=== PATIENT | female | born 2000 | race Caucasian/White ===

== ENCOUNTER 2021-07-27 03:37 | Emergency (ER) | payer MEDICAID ==
[~2021-07-27] VITALS: Ht 160 cm; Wt 57.6 kg
[2021-07-27 04:10] LABS: Basophils # (auto) 0.1 10 ^3/uL (0-0.2); Eosinophils # (auto) 0.2 10 ^3/uL (0-0.8); Hemoglobin 12.3 g/dL (12.2-16.2); Nucleated Red Blood Cells % 0.1 %
[2021-07-27 04:11] LABS: Basophils % (auto) 0.6 % (0.0-2.0); Eosinophils % (auto) 2.1 % (0.0-7.0); Hematocrit 38.6 % (36.0-46.0); Lymphocytes # (auto) 2.1 10 ^3/uL (0.4-5.4); Lymphocytes % (auto) 18.4 % (10.0-50.0); Mean Corpuscular Hemoglobin 21.3 pg (28.0-32.0); Mean Corpuscular Hgb Conc. 31.9 g/dL (32.0-36.0); Mean Corpuscular Volume 66.8 fL (80.0-100.0); Monocytes # (auto) 0.9 10 ^3/uL (0-1.3); Monocytes % (auto) 7.9 % (0.0-12.0); Neutrophils # (auto) 8.1 10 ^3/uL (1.6-8.6); Red Blood Cells 5.77 10^6/uL (4.0-5.20); White Blood Cell 11.5 10^3/uL (4.4-10.8)
[2021-07-27 04:24] LABS: Albumin 4.2 g/dL (3.4-5.0); BUN/Creatinine Ratio 15.5; Calcium 9.1 mg/dL (8.5-10.1); Potassium 4.2 mmol/L (3.5-5.1)
[2021-07-27 04:27] LABS: Bilirubin, Total 0.3 mg/dL (0.2-1.0); Total Protein 7.9 g/dL (6.4-8.2)
[2021-07-27 04:46] LABS: Urine Bacteria NONE SEEN /hpf (None Seen); Urine Blood 3+ /uL (Negative); Urine Specific Gravity 1.017 (1.001-1.035); Urine WBC 69 /hpf (0 - 5)
[2021-07-27 05:30] VITALS: BP 118/82
== END 2021-07-27 05:33 | disposition home or self-care (01) ==
LOC: ER 03:37
DX: N39.0 Urinary tract infection, site not specified (principal); R31.9 Hematuria, unspecified; Z32.02 Encounter for pregnancy test, result negative
CPT/HCPCS: 36415; 80053; 81001; 81025; 85025; 86850; 86900; 86901

== ENCOUNTER 2021-08-11 22:18 | Emergency (ER) | payer MEDICAID ==
[~2021-08-11] VITALS: Ht 160 cm; Wt 57.6 kg
[2021-08-11 22:18] VITALS: BP 114/76
[2021-08-11 23:42] LABS: Urine Bacteria NONE SEEN /hpf (None Seen); Urine Blood 3+ /uL (Negative); Urine WBC 1332 /hpf (0 - 5)
[2021-08-11 23:55] LABS: Urine Specific Gravity > 1.035 (1.001-1.035)
[2021-08-12] MEDS ORDERED: NITROFURANTOIN 100 mg CAP PO ONE (01:15)
== END 2021-08-12 03:42 | disposition left against medical advice (07) ==
LOC: ER 22:18
DX: R31.9 Hematuria, unspecified (principal); R10.2 Pelvic and perineal pain; Z53.21 Procedure and treatment not carried out due to patient leaving prior to being seen by health care provider
CPT/HCPCS: 81001

== ENCOUNTER 2021-11-10 19:21 | Emergency (ER) | payer MEDICAID ==
[~2021-11-10] VITALS: Ht 160 cm; Wt 57.2 kg
[2021-11-10 21:05] VITALS: BP 109/77
[2021-11-10 21:18] LABS: Urine Bacteria NONE SEEN /hpf (None Seen); Urine Blood Negative /uL (Negative); Urine Specific Gravity 1.018 (1.001-1.035); Urine WBC 2 /hpf (0 - 5)
[2021-11-10 23:00] LABS: Basophils # (auto) 0 10 ^3/uL (0-0.2); Eosinophils # (auto) 0.2 10 ^3/uL (0-0.8); Hemoglobin 11.4 g/dL (12.2-16.2); Monocytes # (auto) 0.5 10 ^3/uL (0-1.3)
[2021-11-10 23:02] LABS: Basophils % (auto) 0.4 % (0.0-2.0); Hematocrit 37.2 % (36.0-46.0); Lymphocytes % (auto) 21.3 % (10.0-50.0); Mean Corpuscular Hemoglobin 20.5 pg (28.0-32.0); Mean Corpuscular Hgb Conc. 30.7 g/dL (32.0-36.0); Mean Corpuscular Volume 66.6 fL (80.0-100.0); Monocytes % (auto) 5.7 % (0.0-12.0); Neutrophils # (auto) 6.6 10 ^3/uL (1.6-8.6); Neutrophils % (auto) 70.6 % (37.0-80.0); Nucleated Red Blood Cells % 0.1 %; Red Blood Cells 5.58 10^6/uL (4.0-5.20); Red Cell Distribution Width 15.1 % (11.8-14.3); White Blood Cell 9.3 10^3/uL (4.4-10.8)
[2021-11-10 23:09] LABS: Albumin 4.1 g/dL (3.4-5.0); BUN/Creatinine Ratio 12.5; Calcium 8.5 mg/dL (8.5-10.1); Potassium 3.7 mmol/L (3.5-5.1)
[2021-11-10 23:12] LABS: Bilirubin, Total 0.4 mg/dL (0.2-1.0); Total Protein 7.6 g/dL (6.4-8.2)
== END 2021-11-11 03:01 | disposition home or self-care (01) ==
LOC: ER 19:21
DX: O26.891 Other specified pregnancy related conditions, first trimester (principal); R10.11 Right upper quadrant pain; R10.2 Pelvic and perineal pain; R11.0 Nausea; Z3A.01 Less than 8 weeks gestation of pregnancy
CPT/HCPCS: 36415; 76801; 76817; 80053; 81001; 84702; 85025

== ENCOUNTER 2021-12-27 13:20 | Emergency (ER) | payer MEDICAID ==
[~2021-12-27] VITALS: Ht 160 cm; Wt 62.0 kg
[2021-12-27] MEDS ORDERED: SODIUM CHLORIDE 0.9% 1,000 ML IV ONE (13:45)
[2021-12-27 14:09] LABS: Basophils # (auto) 0.1 10 ^3/uL (0-0.2); Eosinophils # (auto) 0.1 10 ^3/uL (0-0.8); Hemoglobin 11.4 g/dL (12.2-16.2); Mean Corpuscular Volume 65.3 fL (80.0-100.0); Monocytes # (auto) 0.7 10 ^3/uL (0-1.3)
[2021-12-27 14:12] LABS: Basophils % (auto) 0.6 % (0.0-2.0); Eosinophils % (auto) 0.7 % (0.0-7.0); Hematocrit 36.1 % (36.0-46.0); Lymphocytes # (auto) 2.4 10 ^3/uL (0.4-5.4); Lymphocytes % (auto) 21.5 % (10.0-50.0); Mean Corpuscular Hemoglobin 20.6 pg (28.0-32.0); Mean Corpuscular Hgb Conc. 31.6 g/dL (32.0-36.0); Monocytes % (auto) 6.5 % (0.0-12.0); Neutrophils # (auto) 7.8 10 ^3/uL (1.6-8.6); Neutrophils % (auto) 70.7 % (37.0-80.0); Nucleated Red Blood Cells % 0.1 %; Red Blood Cells 5.53 10^6/uL (4.0-5.20); Red Cell Distribution Width 15.2 % (11.8-14.3)
[2021-12-27 14:32] LABS: BUN/Creatinine Ratio 22.8; Calcium 8.8 mg/dL (8.5-10.1); Potassium 3.7 mmol/L (3.5-5.1)
[2021-12-27 14:35] LABS: Bilirubin, Total 0.2 mg/dL (0.2-1.0); Total Protein 8.2 g/dL (6.4-8.2)
[2021-12-27] MEDS ORDERED: CEPH-322 PO (17:20)
[2021-12-27 17:42] LABS: Urine Bacteria NONE SEEN /hpf (None Seen); Urine Blood 3+ /uL (Negative); Urine Specific Gravity 1.017 (1.001-1.035); Urine WBC 4 /hpf (0 - 5)
[2021-12-27 18:03] VITALS: BP 103/67
== END 2021-12-27 18:04 | disposition home or self-care (01) ==
LOC: EDBD 13:20 → ER 13:20
DX: O20.8 Other hemorrhage in early pregnancy (principal); O23.41 Unspecified infection of urinary tract in pregnancy, first trimester; N39.0 Urinary tract infection, site not specified; Z3A.13 13 weeks gestation of pregnancy
CPT/HCPCS: 36415; 76801; 80053; 81001; 84702; 85025; 96360; 99284; J7030

== ENCOUNTER → 2022-01-29 | Outpatient (CLI) | payer MEDICAID ==
[~2022-01-29] MED LIST: CEPH-322 PO
[2022-01-29 13:28] LABS: Neutrophils % (auto) 75.9 % (37.0-80.0); White Blood Cell 7.4 10^3/uL (4.4-10.8)
[2022-01-29 13:29] LABS: Basophils % (auto) 0.4 % (0.0-2.0); Eosinophils % (auto) 0.8 % (0.0-7.0); Lymphocytes % (auto) 16.4 % (10.0-50.0); Monocytes % (auto) 6.5 % (0.0-12.0)
[2022-01-29 13:30] LABS: Eosinophils # (auto) 0.1 10 ^3/uL (0-0.8); Lymphocytes # (auto) 1.2 10 ^3/uL (0.4-5.4); Monocytes # (auto) 0.5 10 ^3/uL (0-1.3); Neutrophils # (auto) 5.6 10 ^3/uL (1.6-8.6)
[2022-01-29 13:31] LABS: Basophils # (auto) 0 10 ^3/uL (0-0.2)
[2022-01-29 13:32] LABS: Hematocrit 34.4 % (36.0-46.0); Hemoglobin 11.1 g/dL (12.2-16.2); Mean Corpuscular Hemoglobin 21.1 pg (28.0-32.0); Mean Corpuscular Volume 65.3 fL (80.0-100.0); Red Blood Cells 5.27 10^6/uL (4.0-5.20)
[2022-01-29 13:33] LABS: Mean Corpuscular Hgb Conc. 32.3 g/dL (32.0-36.0); Red Cell Distribution Width 14.8 % (11.8-14.3)
[2022-01-29 13:35] LABS: Amphetamine Screen, Urine NEGATIVE (NEGATIVE); Barbiturate Scree,Urine NEGATIVE (NEGATIVE); Benzodiazephine Screen, Urine NEGATIVE (NEGATIVE); Cannabinoid Screen, Urine NEGATIVE (NEGATIVE); Cocaine Screen, Urine NEGATIVE (NEGATIVE); Opiate Scree,Urine NEGATIVE (NEGATIVE); Phencyclidine Screen, Urine NEGATIVE (NEGATIVE)
[2022-01-29 13:59] LABS: Urine Bacteria NONE SEEN /hpf (None Seen); Urine Blood Negative /uL (Negative); Urine Mucus FEW (None Seen); Urine Specific Gravity 1.028 (1.001-1.035); Urine WBC 4 /hpf (0 - 5)
[2022-01-30 07:06] LABS: RPR Non Reactive (Non Reactive)
== END | disposition home or self-care (01) ==
LOC: LAB 12:18
PROVIDERS: ATTEND Obstetrics & Gynecology
DX: Z34.00 Encounter for supervision of normal first pregnancy, unspecified trimester (principal); Z31.430 Encounter of female for testing for genetic disease carrier status for procreative management; Z36.0 Encounter for antenatal screening for chromosomal anomalies; Z3A.00 Weeks of gestation of pregnancy not specified
CPT/HCPCS: 36415; 80307; 81001; 83036; 84112; 84702; 85025; 86592; 86703; 86762; 86850; 86900; 86901; 87340

== ENCOUNTER 2022-02-10 21:44 | Emergency (ER) | payer MEDICAID ==
[~2022-02-10] VITALS: Ht 160 cm; Wt 56.0 kg
[2022-02-10 23:18] LABS: Basophils # (auto) 0 10 ^3/uL (0-0.2); Mean Corpuscular Volume 65.9 fL (80.0-100.0); White Blood Cell 10.8 10^3/uL (4.4-10.8)
[2022-02-10 23:19] LABS: Basophils % (auto) 0.5 % (0.0-2.0); Eosinophils # (auto) 0 10 ^3/uL (0-0.8); Eosinophils % (auto) 0.4 % (0.0-7.0); Hematocrit 34.2 % (36.0-46.0); Lymphocytes # (auto) 1.8 10 ^3/uL (0.4-5.4); Lymphocytes % (auto) 16.3 % (10.0-50.0); Mean Corpuscular Hemoglobin 21.1 pg (28.0-32.0); Monocytes # (auto) 0.7 10 ^3/uL (0-1.3); Monocytes % (auto) 6.3 % (0.0-12.0); Neutrophils # (auto) 8.3 10 ^3/uL (1.6-8.6); Neutrophils % (auto) 76.5 % (37.0-80.0); Red Blood Cells 5.19 10^6/uL (4.0-5.20); Red Cell Distribution Width 14.7 % (11.8-14.3)
[2022-02-10 23:33] LABS: Potassium 3.9 mmol/L (3.5-5.1)
[2022-02-10 23:38] LABS: Albumin 3.5 g/dL (3.4-5.0); BUN/Creatinine Ratio 10.3
[2022-02-10 23:40] LABS: Bilirubin, Total 0.4 mg/dL (0.2-1.0); Total Protein 7.6 g/dL (6.4-8.2)
[2022-02-11] MEDS ORDERED: ONDANSETRON ODT 4 MG TAB PO ONE (03:30)
[2022-02-11] MEDS ORDERED: diphenhdrAMINE HCL 50 MG/1 ML VL IM ONE (03:30)
[2022-02-11] MEDS ORDERED: METOCLOPRAMIDE HCL 5MG/ml INJ 2ml VIAL IM ONE (03:30)
[2022-02-11] MEDS ORDERED: DOXY10TA PO (05:14)
[2022-02-11 05:30] VITALS: BP 118/76
== END 2022-02-11 05:30 | disposition home or self-care (01) ==
LOC: ER 21:45
DX: O21.0 Mild hyperemesis gravidarum (principal); R10.2 Pelvic and perineal pain; Z3A.19 19 weeks gestation of pregnancy
CPT/HCPCS: 36415; 76805; 80053; 84702; 85025; 96372; 99284; J1200; J2765; Q0162

== ENCOUNTER → 2022-04-10 | Outpatient (CLI) | payer MEDICAID ==
[~2022-04-10] MED LIST changes: +DOXY10TA PO
[2022-04-10 09:56] LABS: Basophils # (auto) 0 10 ^3/uL (0-0.2); Eosinophils # (auto) 0.1 10 ^3/uL (0-0.8); Lymphocytes # (auto) 1.5 10 ^3/uL (0.4-5.4)
[2022-04-10 09:57] LABS: Basophils % (auto) 0.4 % (0.0-2.0); Eosinophils % (auto) 1.2 % (0.0-7.0); Hemoglobin 10.2 g/dL (12.2-16.2); Lymphocytes % (auto) 13.9 % (10.0-50.0); Mean Corpuscular Volume 66.7 fL (80.0-100.0); Monocytes # (auto) 0.8 10 ^3/uL (0-1.3); Monocytes % (auto) 7.4 % (0.0-12.0); Neutrophils # (auto) 8.4 10 ^3/uL (1.6-8.6); Neutrophils % (auto) 77.1 % (37.0-80.0); Nucleated Red Blood Cells % 0.1 %; Red Blood Cells 4.65 10^6/uL (4.0-5.20); White Blood Cell 10.9 10^3/uL (4.4-10.8)
== END | disposition home or self-care (01) ==
LOC: LAB 09:39
PROVIDERS: ATTEND Obstetrics & Gynecology
DX: Z34.80 Encounter for supervision of other normal pregnancy, unspecified trimester (principal); Z3A.00 Weeks of gestation of pregnancy not specified
CPT/HCPCS: 36415; 82951; 83036; 85025

== ENCOUNTER 2022-05-08 13:00 | Observation (INO) | payer MEDICAID | END 2022-05-08 17:35 | disposition home or self-care (01) | LOC: LDRP 13:00 → UNDOADMOB 13:00 → LDRP 15:16 | PROVIDERS: ADMIT Obstetrics & Gynecology; ATTEND Obstetrics & Gynecology | DX: O60.03 Preterm labor without delivery, third trimester (principal); O26.893 Other specified pregnancy related conditions, third trimester; N89.8 Other specified noninflammatory disorders of vagina; H53.8 Other visual disturbances; O42.913 Preterm premature rupture of membranes, unspecified as to length of time between rupture and onset of labor, third trimester; Z3A.31 31 weeks gestation of pregnancy | CPT/HCPCS: 59025; 76815; 81002; 84112; 94760; G0378; Q0114 ==

== ENCOUNTER 2022-05-20 13:00 | Observation (INO) | payer MEDICAID ==
[~2022-05-20] VITALS: Ht 160 cm; Wt 56.2 kg
[2022-05-20] MEDS ORDERED: LACTATED RINGER'S 1,000 ML IV ONE (13:45)
[2022-05-20] MEDS ORDERED: HYDROcodone-ACET 10/325MG TAB PO ONE (13:45)
[2022-05-20] MEDS ORDERED: ceFAZolin 1GM/50ML 50 ML IV ONE (13:45)
[2022-05-20] MEDS: ONDANSETRON HCL 4 MG/2 ML VIAL IV PRN ×2 (14:27→17:58)
[2022-05-20] MEDS ORDERED: BUTORPHANOL TARTRATE 2 MG/1 ML VIAL IV ONE (14:30)
[2022-05-20 15:28] VITALS: BP 95/57
[2022-05-20 15:31] LABS: Urine Bacteria FEW /hpf (None Seen); Urine Blood TRACE /uL (Negative); Urine Specific Gravity 1.015 (1.001-1.035); Urine WBC 6 /hpf (0 - 5)
[2022-05-20 15:39] LABS: Basophils # (auto) 0 10 ^3/uL (0-0.2); Basophils % (auto) 0.3 % (0.0-2.0); Eosinophils # (auto) 0 10 ^3/uL (0-0.8); Eosinophils % (auto) 0.5 % (0.0-7.0); Hematocrit 26.5 % (36.0-46.0); Hemoglobin 8.7 g/dL (12.2-16.2); Lymphocytes # (auto) 0.9 10 ^3/uL (0.4-5.4); Lymphocytes % (auto) 10.6 % (10.0-50.0); Mean Corpuscular Hemoglobin 21.6 pg (28.0-32.0); Mean Corpuscular Hgb Conc. 32.9 g/dL (32.0-36.0); Mean Corpuscular Volume 65.7 fL (80.0-100.0); Monocytes # (auto) 0.5 10 ^3/uL (0-1.3); Monocytes % (auto) 5.6 % (0.0-12.0); Neutrophils # (auto) 6.9 10 ^3/uL (1.6-8.6); Nucleated Red Blood Cells % 0.1 %; Red Blood Cells 4.02 10^6/uL (4.0-5.20); Red Cell Distribution Width 14.3 % (11.8-14.3); White Blood Cell 8.3 10^3/uL (4.4-10.8)
[2022-05-20] MEDS: TERBUTALINE SULFATE 1 MG/ML 1ML VIAL SC SCH ×2 (16:26→17:45)
[2022-05-20] MEDS ORDERED: LACTATED RINGER'S 1,000 ML IV SCH (18:30)
[2022-05-20] MEDS ORDERED: NITR-87 PO (19:40)
== END 2022-05-20 19:58 | disposition home or self-care (01) ==
LOC: UNDOADMOB 13:00 → LDRP 13:00 → UNDODISOB 19:58
PROVIDERS: ADMIT Obstetrics & Gynecology; ATTEND Obstetrics & Gynecology
DX: O26.893 Other specified pregnancy related conditions, third trimester (principal); R10.30 Lower abdominal pain, unspecified; R10.13 Epigastric pain; R35.0 Frequency of micturition; O62.9 Abnormality of forces of labor, unspecified; Z3A.33 33 weeks gestation of pregnancy
CPT/HCPCS: 36415; 59025; 81001; 81002; 85025; 94760; 96361; 96365; 96372; 96375; 96376; G0378; J0595; J0690; J2405; J3105; 96360; 96374

== ENCOUNTER → 2022-05-29 | Outpatient (CLI) | payer MEDICAID ==
[~2022-05-29] MED LIST changes: +NITR-87 PO
[2022-05-29 11:44] LABS: Nucleated Red Blood Cells % 0.2 %
[2022-05-29 11:46] LABS: Basophils # (auto) 0 10 ^3/uL (0-0.2); Basophils % (auto) 0.4 % (0.0-2.0); Eosinophils # (auto) 0.2 10 ^3/uL (0-0.8); Eosinophils % (auto) 1.8 % (0.0-7.0); Hematocrit 30.1 % (36.0-46.0); Hemoglobin 9.8 g/dL (12.2-16.2); Lymphocytes # (auto) 1.5 10 ^3/uL (0.4-5.4); Lymphocytes % (auto) 17.2 % (10.0-50.0); Mean Corpuscular Hemoglobin 21.4 pg (28.0-32.0); Mean Corpuscular Hgb Conc. 32.5 g/dL (32.0-36.0); Mean Corpuscular Volume 65.7 fL (80.0-100.0); Monocytes # (auto) 0.7 10 ^3/uL (0-1.3); Monocytes % (auto) 7.6 % (0.0-12.0); Neutrophils # (auto) 6.4 10 ^3/uL (1.6-8.6); Red Blood Cells 4.58 10^6/uL (4.0-5.20); Red Cell Distribution Width 14.2 % (11.8-14.3); White Blood Cell 8.8 10^3/uL (4.4-10.8)
[2022-05-30 08:06] LABS: RPR Non Reactive (Non Reactive)
== END | disposition home or self-care (01) ==
LOC: LAB 11:23
PROVIDERS: ATTEND Obstetrics & Gynecology
DX: Z34.80 Encounter for supervision of other normal pregnancy, unspecified trimester (principal); Z3A.00 Weeks of gestation of pregnancy not specified
CPT/HCPCS: 36415; 84112; 85025; 86592

== ENCOUNTER 2022-07-05 11:18 | Inpatient (IN) | payer MEDICAID ==
[~2022-07-05] VITALS: Ht 33 cm; Wt 0.5 kg
[2022-07-05] MEDS ORDERED: PROMETHAZINE HCL 25 MG/ML 1ML IV PRN (12:00)
[2022-07-05] MEDS ORDERED: BUTORPHANOL TARTRATE 2 MG/1 ML VIAL IV PRN ×2 (12:00)
[2022-07-05] MEDS ORDERED: LIDOCAINE 2%HCL (LOCAL ANESTH.) INJ 20ML MDV IJ PRN (12:00)
[2022-07-05] MEDS ORDERED: LACT. RINGERS/OXYTOCIN 20UNITS 500 ML IV ONE ×2 (12:00→12:30)
[2022-07-05 12:26] LABS: Basophils # (auto) 0 10 ^3/uL (0-0.2); Basophils % (auto) 0.5 % (0.0-2.0); Eosinophils # (auto) 0.1 10 ^3/uL (0-0.8); Eosinophils % (auto) 0.6 % (0.0-7.0); Hematocrit 31.2 % (36.0-46.0); Hemoglobin 9.9 g/dL (12.2-16.2); Lymphocytes % (auto) 21.3 % (10.0-50.0); Mean Corpuscular Hemoglobin 20.8 pg (28.0-32.0); Mean Corpuscular Hgb Conc. 31.8 g/dL (32.0-36.0); Mean Corpuscular Volume 65.6 fL (80.0-100.0); Monocytes # (auto) 0.6 10 ^3/uL (0-1.3); Monocytes % (auto) 5.9 % (0.0-12.0); Neutrophils # (auto) 6.8 10 ^3/uL (1.6-8.6); Neutrophils % (auto) 71.7 % (37.0-80.0); Red Blood Cells 4.76 10^6/uL (4.0-5.20); Red Cell Distribution Width 16.6 % (11.8-14.3); White Blood Cell 9.4 10^3/uL (4.4-10.8)
[2022-07-05 12:43] LABS: INR 0.91 (0.9-1.15); Partial Thromboplastin Time 25.9 sec (24.6-33.4)
[2022-07-05 12:44] LABS: Albumin 2.9 g/dL (3.4-5.0); Calcium 8.6 mg/dL (8.5-10.1); Potassium 3.7 mmol/L (3.5-5.1)
[2022-07-05 12:49] LABS: Bilirubin, Total 0.4 mg/dL (0.2-1.0); Total Protein 7.2 g/dL (6.4-8.2)
[2022-07-05] MEDS: LACTATED RINGER'S 1,000 ML IV SCH ×2 (13:27→19:03)
[2022-07-05 13:39] LABS: Urine Bacteria FEW /hpf (None Seen); Urine Blood 1+ /uL (Negative); Urine Mucus FEW (None Seen); Urine Specific Gravity 1.018 (1.001-1.035); Urine WBC 2 /hpf (0 - 5)
[2022-07-05 13:59] LABS: Amphetamine Screen, Urine NEGATIVE (NEGATIVE); Barbiturate Scree,Urine NEGATIVE (NEGATIVE); Benzodiazephine Screen, Urine NEGATIVE (NEGATIVE); Cannabinoid Screen, Urine NEGATIVE (NEGATIVE); Cocaine Screen, Urine NEGATIVE (NEGATIVE); Opiate Scree,Urine NEGATIVE (NEGATIVE); Phencyclidine Screen, Urine NEGATIVE (NEGATIVE)
[2022-07-05] MEDS ORDERED: fentaNYL CITRATE 100 MCG/2 ML VL IV ONE (14:00)
[2022-07-05] MEDS ORDERED: ePHEDrine SULFATE 50 MG/ML AMP IV ONE (14:00)
[2022-07-05] MEDS ORDERED: NALOXONE HCL 0.4 MG/ML VIAL IV ONE (14:00)
[2022-07-05] MEDS ORDERED: LACTATED RINGER'S 1,000 ML IV ONE (14:00)
[2022-07-05] MEDS ORDERED: ROPIVACAINE HCL 200 ML EPI SCH (14:00)
[2022-07-05] MEDS ORDERED: LIDOCAINE W/ EPINEPHRINE 1.5 % INJ 5ML AMP IJ ONE (14:15)
[2022-07-05] MEDS ORDERED: Lidocaine W-Epinephrine 1.5%-1:200,000 INJ 10ml Vial ONE (14:32)
[2022-07-05] MEDS ORDERED: LACT. RINGERS/OXYTOCIN 20UNITS 1,000 ML IV SCH (15:30)
[2022-07-05] MEDS ORDERED: TERBUTALINE SULFATE 1 MG/ML 1ML VIAL SC PRN (15:30)
[2022-07-05] MEDS: WITCH HAZEL-GLYCERIN PAD TOP PRN (17:09)
[2022-07-05] MEDS: DERMOPLAST 60ML BOTTLE TOP PRN (17:09)
[2022-07-05] MEDS: PHISODERM TOP SOLN 240ML BTL TOP PRN (17:09)
[2022-07-05] MEDS: ONDANSETRON HCL 4 MG/2 ML VIAL IV PRN (18:55)
[2022-07-05] MEDS ORDERED: METHYLERGONOVINE MALEATE 0.2 MG/ML AMP IM PRN (21:15)
[2022-07-06] VITALS (12 sets, daily range): BP systolic 112–169; BP diastolic 71–102
[2022-07-06] MEDS ORDERED: IBUPROFEN 800 MG TAB PO SCH
[2022-07-06] MEDS ORDERED: ACETAMINOPHEN 325 MG TAB PO PRN
[2022-07-06] MEDS ORDERED: miSOPROStol 100 mcg TAB PR PRN (00:30)
[2022-07-06] MEDS: ONDANSETRON HCL 4 MG/2 ML VIAL IV PRN (00:51)
[2022-07-06] MEDS: HYDROcodone-ACET 10/325MG TAB PO PRN ×4 (04:51→21:44)
[2022-07-06 06:06] LABS: RPR Non Reactive (Non Reactive)
[2022-07-06] MEDS: IBUPROFEN 800 MG TAB PO PRN ×3 (09:47→23:44)
[2022-07-06] MEDS ORDERED: miSOPROStol 100 mcg TAB PO ONE (10:39)
[2022-07-06] MEDS ORDERED: TETANUS-DIPTH-ACEL PERTUSSIS 0.5ML SYR Tdap IM ONE (16:00)
[2022-07-06] MEDS: PHISODERM TOP SOLN 240ML BTL TOP PRN (16:43)
[2022-07-06] MEDS: WITCH HAZEL-GLYCERIN PAD TOP PRN (16:43)
[2022-07-06] MEDS: DERMOPLAST 60ML BOTTLE TOP PRN (16:43)
[2022-07-06] MEDS ORDERED: DOCUSATE SOD 100 MG CAP PO SCH (22:00)
[2022-07-07 03:00] VITALS: BP 123/69
[2022-07-07] MEDS: WITCH HAZEL-GLYCERIN PAD TOP PRN ×2 (03:32→07:30)
[2022-07-07] MEDS: HYDROcodone-ACET 10/325MG TAB PO PRN (05:17)
[2022-07-07 07:00] VITALS: BP 119/68
[2022-07-07] MEDS: IBUPROFEN 800 MG TAB PO PRN (07:30)
[2022-07-07] MEDS: DERMOPLAST 60ML BOTTLE TOP PRN (07:30)
== END 2022-07-07 10:20 | disposition home or self-care (01) | DRG 560 ==
LOC: LDRP 11:18 → OBSVTOIN 11:50 → LDRP 07-06 02:33
PROVIDERS: ADMIT Obstetrics & Gynecology; ATTEND Obstetrics & Gynecology
PROC: 10D07Z6 Extraction of Products of Conception, Vacuum, Via Natural or Artificial Opening (ICD-10-PCS; principal; 2022-07-05)
PROC: 0KQM0ZZ Repair Perineum Muscle, Open Approach (ICD-10-PCS; 2022-07-05)
PROC: 10907ZC Drainage of Amniotic Fluid, Therapeutic from Products of Conception, Via Natural or Artificial Opening (ICD-10-PCS; 2022-07-05)
PROC: 0W8NXZZ Division of Female Perineum, External Approach (ICD-10-PCS; 2022-07-05)
PROC: 3E0R3BZ Introduction of Anesthetic Agent into Spinal Canal, Percutaneous Approach (ICD-10-PCS; 2022-07-05)
PROC: 00HU33Z Insertion of Infusion Device into Spinal Canal, Percutaneous Approach (ICD-10-PCS; 2022-07-05)
DX: O69.81X0 Labor and delivery complicated by cord around neck, without compression, not applicable or unspecified (principal); Z37.0 Single live birth; O70.1 Second degree perineal laceration during delivery; Z20.822 Contact with and (suspected) exposure to COVID-19; Z3A.39 39 weeks gestation of pregnancy
CPT/HCPCS: 36415; 59025; 59409; 62282; 80053; 80307; 81001; 81002; 85025; 85610; 85730; 86592; 86850; 86900; 86901; 87426; 90471; 90715; 94760; 96360; 96361; 96365; 96366; 96375; G0378; J2405; J2590

== ENCOUNTER 2022-12-15 17:13 | Emergency (ER) | payer MEDICAID ==
[~2022-12-15] VITALS: Ht 157.5 cm; Wt 56.0 kg
[~2022-12-15 17:13] MED LIST changes: -CEPH-322 PO; +CEPH250C PO
[2022-12-15] MEDS ORDERED: ALBUTEROL SULF 2.5 MG/0.5ML(0.5%) NEB SOLN NEB ONE (19:00)
[2022-12-15] MEDS ORDERED: IPRATROPIUM BROM 0.5 MG/2.5ML INH SOL NEB ONE (19:00)
[2022-12-15] MEDS ORDERED: DexAMETHasone SOD PHOS 10MG/1ML VIAL INJ IM ONE (19:00)
[2022-12-15] MEDS ORDERED: cefTRIAXone SOD 1,000 MG VL IM ONE (20:15)
[2022-12-15] MEDS ORDERED: PRED20TA2 PO (20:17)
[2022-12-15] MEDS ORDERED: ALBUAER3 IN (20:17)
[2022-12-15] MEDS ORDERED: BENZ200C64 PO (20:17)
[2022-12-15] MEDS ORDERED: GENT0.3S10 EACHEYE (20:17)
[2022-12-15] MEDS ORDERED: AUG875T PO (20:17)
[2022-12-15 20:43] VITALS: BP 117/80; PULSE 96; RESP 16; TEMP 98.6; O2SAT 95
== END 2022-12-15 20:52 | disposition home or self-care (01) ==
LOC: ER 17:13
DX: J18.9 Pneumonia, unspecified organism (principal); H10.9 Unspecified conjunctivitis
CPT/HCPCS: 71045; 94640; 96372; 99284; J0696; J1100; J7644

== ENCOUNTER → 2023-01-16 | Outpatient (CLI) | payer MEDICAID ==
[~2023-01-16] MED LIST changes: +ALBUAER3 IN; +AUG875T PO; +BENZ200C64 PO; +GENT0.3S10 EACHEYE; +PRED20TA2 PO
[2023-01-16 09:23] LABS: Eosinophils # (auto) 0.2 10 ^3/uL (0-0.8); Mean Corpuscular Hemoglobin 20.4 pg (28.0-32.0); Mean Corpuscular Volume 65.2 fL (80.0-100.0); Monocytes # (auto) 0.5 10 ^3/uL (0-1.3); Monocytes % (auto) 7.1 % (0.0-12.0); Neutrophils # (auto) 4.2 10 ^3/uL (1.6-8.6); Nucleated Red Blood Cells % 0.1 %; White Blood Cell 6.6 10^3/uL (4.4-10.8)
[2023-01-16 09:25] LABS: Basophils # (auto) 0.1 10 ^3/uL (0-0.2); Basophils % (auto) 0.8 % (0.0-2.0); Eosinophils % (auto) 2.9 % (0.0-7.0); Hemoglobin 11.2 g/dL (12.2-16.2); Lymphocytes # (auto) 1.6 10 ^3/uL (0.4-5.4); Lymphocytes % (auto) 24.5 % (10.0-50.0); Mean Corpuscular Hgb Conc. 31.3 g/dL (32.0-36.0); Neutrophils % (auto) 64.7 % (37.0-80.0); Red Blood Cells 5.52 10^6/uL (4.0-5.20); Red Cell Distribution Width 17.1 % (11.8-14.3)
[2023-01-16 10:20] LABS: % Iron Saturation 21.5 % (15-50)
[2023-01-16 10:22] LABS: Alanine Aminotransferase 12 U/L (7-40); Albumin 4.4 g/dL (3.2-4.8); Alkaline Phosphatase 98 U/L (46-116); Anion Gap 7 (5-15); Aspartate Aminotransferase < 8 U/L (13-40); BUN/Creatinine Ratio 18.5 (10.0-20.0); Blood Urea Nitrogen 12 mg/dL (9-23); Calcium 9.1 mg/dL (8.5-10.1); Carbon Dioxide 27 mmol/L (20-30); Chloride 107 mmol/L (98-107); Glucose 83 mg/dL (74-106); Sodium 141 mmol/L (136-145)
[2023-01-16 10:23] LABS: Bilirubin, Total 0.5 mg/dL (0.2-1.0); Total Protein 7.1 g/dL (5.7-8.2)
[2023-01-16 10:55] LABS: Folate (Folic Acid) 11.02 ng/mL (>5.38)
[2023-01-16 12:07] LABS: Hypochromia Moderate; Platelet Estimate Adequate
== END | disposition home or self-care (01) ==
LOC: LAB 09:05
PROVIDERS: ATTEND Student in an Organized Health Care Education/Training Program
DX: E55.9 Vitamin D deficiency, unspecified (principal); D64.9 Anemia, unspecified
CPT/HCPCS: 36415; 80053; 82306; 82607; 82728; 82746; 83540; 83550; 85025

== ENCOUNTER → 2023-05-23 | Outpatient (CLI) | payer MEDICAID ==
[2023-05-23 12:07] LABS: Eosinophils # (auto) 0.2 10 ^3/uL (0-0.8); Eosinophils % (auto) 2.3 % (0.0-7.0); Monocytes # (auto) 0.5 10 ^3/uL (0-1.3)
[2023-05-23 12:09] LABS: Basophils # (auto) 0 10 ^3/uL (0-0.2); Basophils % (auto) 0.4 % (0.0-2.0); Hematocrit 35.3 % (36.0-46.0); Hemoglobin 11.2 g/dL (12.2-16.2); Lymphocytes # (auto) 1.5 10 ^3/uL (0.4-5.4); Lymphocytes % (auto) 20.4 % (10.0-50.0); Mean Corpuscular Hemoglobin 20.8 pg (28.0-32.0); Mean Corpuscular Hgb Conc. 31.8 g/dL (32.0-36.0); Mean Corpuscular Volume 65.4 fL (80.0-100.0); Monocytes % (auto) 7.1 % (0.0-12.0); Neutrophils # (auto) 5.2 10 ^3/uL (1.6-8.6); Neutrophils % (auto) 69.8 % (37.0-80.0); Nucleated Red Blood Cells % 0.1 %; Red Blood Cells 5.39 10^6/uL (4.0-5.20); Red Cell Distribution Width 16.2 % (11.8-14.3); White Blood Cell 7.5 10^3/uL (4.4-10.8)
[2023-05-23 12:28] LABS: Urine Bacteria NONE SEEN /hpf (None Seen); Urine Blood Negative /uL (Negative); Urine Clarity Clear (Clear); Urine Color Yellow (Yellow); Urine Mucus FEW (None Seen); Urine Protein, UAD Negative (Negative); Urine Urobilinogen Normal (Negative); Urine WBC 1 /hpf (0 - 5); Urine pH 5.5 (5.0-8.0)
[2023-05-23 12:40] LABS: % Iron Saturation 28.5 % (15-50)
[2023-05-23 12:41] LABS: Alkaline Phosphatase 96 U/L (46-116); Anion Gap 8 (5-15); BUN/Creatinine Ratio 14.3 (10.0-20.0); Blood Urea Nitrogen 10 mg/dL (9-23); Calcium 9.4 mg/dL (8.5-10.1); Carbon Dioxide 26 mmol/L (20-30); Chloride 106 mmol/L (98-107); Glucose 89 mg/dL (74-106); Potassium 3.7 mmol/L (3.5-5.1); Sodium 140 mmol/L (136-145)
[2023-05-23 12:42] LABS: Alanine Aminotransferase < 9 U/L (7-40); Albumin 4.7 g/dL (3.2-4.8); Aspartate Aminotransferase 12 U/L (13-40); Bilirubin, Total 0.6 mg/dL (0.2-1.0); Folate (Folic Acid) 21.09 ng/mL (>5.38); Total Protein 7.6 g/dL (5.7-8.2)
== END | disposition home or self-care (01) ==
LOC: LAB 11:27
PROVIDERS: ATTEND Student in an Organized Health Care Education/Training Program
DX: Z00.01 Encounter for general adult medical examination with abnormal findings (principal); D50.9 Iron deficiency anemia, unspecified; E55.9 Vitamin D deficiency, unspecified
CPT/HCPCS: 36415; 80053; 81001; 82306; 82607; 82746; 83036; 83540; 83550; 84443; 85025

== ENCOUNTER → 2023-08-08 | Outpatient (CLI) | payer MEDICAID ==
[2023-08-08 13:27] LABS: Basophils # (auto) 0 10 ^3/uL (0-0.2); Eosinophils # (auto) 0.1 10 ^3/uL (0-0.8); Eosinophils % (auto) 0.8 % (0.0-7.0); Lymphocytes # (auto) 1.5 10 ^3/uL (0.4-5.4); Monocytes # (auto) 0.5 10 ^3/uL (0-1.3); Monocytes % (auto) 4.9 % (0.0-12.0)
[2023-08-08 13:29] LABS: Basophils % (auto) 0.4 % (0.0-2.0); Hematocrit 36.5 % (36.0-46.0); Hemoglobin 11.6 g/dL (12.2-16.2); Lymphocytes % (auto) 14.2 % (10.0-50.0); Mean Corpuscular Hemoglobin 20.7 pg (28.0-32.0); Mean Corpuscular Hgb Conc. 31.7 g/dL (32.0-36.0); Mean Corpuscular Volume 65.2 fL (80.0-100.0); Neutrophils # (auto) 8.2 10 ^3/uL (1.6-8.6); Neutrophils % (auto) 79.7 % (37.0-80.0); Red Blood Cells 5.59 10^6/uL (4.0-5.20); Red Cell Distribution Width 15.1 % (11.8-14.3); White Blood Cell 10.3 10^3/uL (4.4-10.8)
[2023-08-08 14:13] LABS: Amphetamine Screen, Urine Neg (NEGATIVE); Barbiturate Scree,Urine Neg (NEGATIVE); Benzodiazephine Screen, Urine Neg (NEGATIVE); Cocaine Screen, Urine Neg (NEGATIVE)
[2023-08-08 14:14] LABS: Cannabinoid Screen, Urine Neg (NEGATIVE); Opiate Scree,Urine Neg (NEGATIVE); Phencyclidine Screen, Urine Neg (NEGATIVE)
[2023-08-09 06:06] LABS: RPR Non Reactive (Non Reactive)
[2023-08-10 06:06] LABS: Chlamydia Trachomatis, NAA Negative (Negative); Neisseria gonorrhoeae, NAA Negative (Negative)
[2023-08-11 15:06] LABS: QuantiFERON-TB Gold Plus Negative (Negative)
== END | disposition home or self-care (01) ==
LOC: LAB 12:50
PROVIDERS: ATTEND Obstetrics & Gynecology
DX: Z34.80 Encounter for supervision of other normal pregnancy, unspecified trimester (principal); Z72.51 High risk heterosexual behavior; Z3A.00 Weeks of gestation of pregnancy not specified
CPT/HCPCS: 36415; 80307; 83036; 84144; 84702; 85025; 86592; 86703; 86762; 86850; 86900; 86901; 87086; 87340

== ENCOUNTER → 2023-12-12 | Outpatient (CLI) | payer MEDICAID ==
[2023-12-12 10:29] LABS: Basophils # (auto) 0 10 ^3/uL (0-0.2); Eosinophils # (auto) 0.1 10 ^3/uL (0-0.8); Eosinophils % (auto) 1.7 % (0.0-7.0); Hemoglobin 10.6 g/dL (12.2-16.2); Lymphocytes # (auto) 1.8 10 ^3/uL (0.4-5.4); Mean Corpuscular Hgb Conc. 33.1 g/dL (32.0-36.0); Nucleated Red Blood Cells % 0.1 %
[2023-12-12 10:32] LABS: Basophils % (auto) 0.4 % (0.0-2.0); Lymphocytes % (auto) 22.3 % (10.0-50.0); Mean Corpuscular Hemoglobin 22.2 pg (28.0-32.0); Mean Corpuscular Volume 67.1 fL (80.0-100.0); Monocytes # (auto) 0.6 10 ^3/uL (0-1.3); Monocytes % (auto) 7.3 % (0.0-12.0); Neutrophils # (auto) 5.6 10 ^3/uL (1.6-8.6); Neutrophils % (auto) 68.3 % (37.0-80.0); Platelet Count (auto) 310 10^3/uL (140-450); Red Blood Cells 4.78 10^6/uL (4.0-5.20); Red Cell Distribution Width 14.4 % (11.8-14.3); White Blood Cell 8.2 10^3/uL (4.4-10.8)
== END | disposition home or self-care (01) ==
LOC: LAB 08:46
PROVIDERS: ATTEND Obstetrics & Gynecology
DX: Z34.80 Encounter for supervision of other normal pregnancy, unspecified trimester (principal); Z3A.00 Weeks of gestation of pregnancy not specified
CPT/HCPCS: 36415; 82951; 83036; 85025; 86850; 86900; 86901

== ENCOUNTER 2024-01-16 16:38 | Observation (INO) | payer MEDICAID ==
[~2024-01-16] VITALS: Ht 154.9 cm; Wt 61.2 kg
[2024-01-16 20:11] LABS: Vaginal Bacteria Few; Vaginal Clue Cells None Seen; Vaginal Epithelial Cells Few; Vaginal Trichomonas Not Present
== END 2024-01-16 21:05 | disposition home or self-care (01) ==
LOC: LDRP 16:38
PROVIDERS: ADMIT Obstetrics & Gynecology; ATTEND Obstetrics & Gynecology
DX: O26.893 Other specified pregnancy related conditions, third trimester (principal); N89.8 Other specified noninflammatory disorders of vagina; Z3A.32 32 weeks gestation of pregnancy
CPT/HCPCS: 59025; 81002; 87210; 94760; G0378

== ENCOUNTER 2024-01-20 14:10 | Observation (INO) | payer MEDICAID ==
[2024-01-20 15:03] LABS: Vaginal Bacteria Rare; Vaginal Clue Cells None Seen; Vaginal Epithelial Cells Few; Vaginal Trichomonas Not Present
[2024-01-20 16:37] LABS: Vaginal Trichomonas Not Present
[2024-01-20 16:39] LABS: Vaginal Bacteria Many; Vaginal Clue Cells None Seen; Vaginal Epithelial Cells Moderate
== END 2024-01-20 17:40 | disposition home or self-care (01) ==
LOC: LDRP 14:10
PROVIDERS: ADMIT Obstetrics & Gynecology; ATTEND Obstetrics & Gynecology
DX: O26.893 Other specified pregnancy related conditions, third trimester (principal); N89.8 Other specified noninflammatory disorders of vagina; L29.2 Pruritus vulvae; Z3A.33 33 weeks gestation of pregnancy
CPT/HCPCS: 59025; 81002; 87210; 94760; G0378

== ENCOUNTER → 2024-02-11 | Outpatient (CLI) | payer MEDICAID ==
[2024-02-11 11:42] LABS: Basophils # (auto) 0 10 ^3/uL (0-0.2); Basophils % (auto) 0.4 % (0.0-2.0); Eosinophils # (auto) 0.1 10 ^3/uL (0-0.8); Eosinophils % (auto) 1.3 % (0.0-7.0); Hemoglobin 9.8 g/dL (12.2-16.2); Lymphocytes # (auto) 1.8 10 ^3/uL (0.4-5.4); Lymphocytes % (auto) 21.2 % (10.0-50.0); Mean Corpuscular Hgb Conc. 31.8 g/dL (32.0-36.0); Monocytes # (auto) 0.7 10 ^3/uL (0-1.3); Neutrophils # (auto) 5.8 10 ^3/uL (1.6-8.6); Neutrophils % (auto) 69.1 % (37.0-80.0); Nucleated Red Blood Cells % 0.1 %; Platelet Count (auto) 328 10^3/uL (140-450); Red Blood Cells 4.69 10^6/uL (4.0-5.20); Red Cell Distribution Width 14.7 % (11.8-14.3); White Blood Cell 8.3 10^3/uL (4.4-10.8)
[2024-02-12 07:07] LABS: RPR Non Reactive (Non Reactive)
== END | disposition home or self-care (01) ==
LOC: LAB 11:17
PROVIDERS: ATTEND Obstetrics & Gynecology
DX: Z34.80 Encounter for supervision of other normal pregnancy, unspecified trimester (principal); Z72.51 High risk heterosexual behavior
CPT/HCPCS: 36415; 85025; 86592

== ENCOUNTER 2024-02-28 14:50 | Inpatient (IN) | payer MEDICAID ==
[~2024-02-28] VITALS: Ht 162.6 cm; Wt 68.0 kg
[2024-02-28] MEDS ORDERED: LIDOCAINE 2%HCL (LOCAL ANESTH.) INJ 20ML MDV IJ PRN (15:00)
[2024-02-28] MEDS ORDERED: BUTORPHANOL TARTRATE 2 MG/1 ML VIAL IV PRN ×2 (15:00)
--- NOTE | 2024-02-28 15:06 | DVHHP ---
ADMIT DATE: 02/28/2024 CHIEF COMPLAINT: Labor. HISTORY OF PRESENT ILLNESS: The patient is a 23-year-old 2, para 1 with EDC 03/06/2024, estimated gestational age of 39 weeks, admitted for labor. The patient was noted to be 6-7 cm, 0 station, 90% effaced josephine. No rupture of membrane or vaginal bleeding. PAST MEDICAL HISTORY: None. PAST SURGICAL HISTORY: None. SOCIAL HISTORY: None. FAMILY HISTORY: None. OBSTETRIC AND GYNECOLOGIC HISTORY: One normal vaginal delivery. REVIEW OF SYSTEMS: Consistent with HPI. PHYSICAL EXAMINATION: VITAL SIGNS: Stable, afebrile. HEENT: Within normal limits. CARDIOVASCULAR: Regular rate and rhythm. LUNGS: Clear to auscultation. BREASTS: Symmetrical. No masses. ABDOMEN: Gravid. Positive heart. PELVIC: 6-7, 0 station, 90%. EXTREMITIES: No clubbing, cyanosis or edema. IMPRESSION: Term in labor. PLAN: Expectant vaginal delivery. Informed consent obtained. DO CHIKIS Saldana TID: [id number] RECEIPT: [id number]
[2024-02-28 15:46] LABS: Basophils # (auto) 0 10 ^3/uL (0-0.2); Eosinophils # (auto) 0 10 ^3/uL (0-0.8); Lymphocytes # (auto) 1.3 10 ^3/uL (0.4-5.4); Monocytes # (auto) 0.5 10 ^3/uL (0-1.3); Neutrophils # (auto) 6.2 10 ^3/uL (1.6-8.6); Nucleated Red Blood Cells % 0.1 %; Red Cell Distribution Width 15.4 % (11.8-14.3)
[2024-02-28 15:47] LABS: Basophils % (auto) 0.5 % (0.0-2.0); Eosinophils % (auto) 0.5 % (0.0-7.0); Hematocrit 31.8 % (36.0-46.0); Hemoglobin 10.1 g/dL (12.2-16.2); Lymphocytes % (auto) 16.5 % (10.0-50.0); Mean Corpuscular Hemoglobin 20.8 pg (28.0-32.0); Mean Corpuscular Hgb Conc. 31.8 g/dL (32.0-36.0); Mean Corpuscular Volume 65.4 fL (80.0-100.0); Monocytes % (auto) 6.3 % (0.0-12.0); Neutrophils % (auto) 76.2 % (37.0-80.0); Platelet Count (auto) 314 10^3/uL (140-450); Red Blood Cells 4.86 10^6/uL (4.0-5.20); White Blood Cell 8.2 10^3/uL (4.4-10.8)
[2024-02-28 15:48] LABS: INR 0.96 (0.9-1.15); Partial Thromboplastin Time 23.4 SEC (24.5-34.5); Prothrombin Time 10.2 sec (9.3-11.8)
[2024-02-28 15:51] LABS: Anion Gap 13 (5-15); Aspartate Aminotransferase 17 U/L (13-40); BUN/Creatinine Ratio 14.3 (10.0-20.0); Bilirubin, Total 0.5 mg/dL (0.2-1.0); Blood Urea Nitrogen 9 mg/dL (9-23); Calcium 9.2 mg/dL (8.7-10.4); Chloride 107 mmol/L (98-107); Glucose 83 mg/dL (74-106); Potassium 3.6 mmol/L (3.5-5.1); Sodium 138 mmol/L (136-145); Total Protein 6.6 g/dL (5.7-8.2); Uric Acid 7.2 mg/dL (3.1-7.8)
[2024-02-28 15:56] LABS: Alanine Aminotransferase 9 U/L (7-40); Alkaline Phosphatase 199 U/L (46-116); Carbon Dioxide 18 mmol/L (20-31)
[2024-02-28 16:10] LABS: Urine Bacteria None Seen /hpf (None Seen)
[2024-02-28] MEDS: PENICILLIN G POT 5MIL/D5 50ML 50 ML IV ONE (16:16)
[2024-02-28 16:23] LABS: Urine Blood Negative /uL (Negative); Urine Clarity Clear (Clear); Urine Color Light-Yellow (Yellow); Urine Protein, UAD Negative (Negative); Urine Specific Gravity 1.014 (1.001-1.035); Urine Urobilinogen Normal (Negative); Urine WBC <1 /hpf (0 - 5); Urine pH 6.5 (5.0-9.0)
[2024-02-28 16:35] LABS: Anisocytosis Slight; Hypochromia Slight; Macrocytosis Slight; Ovalocytes FEW; Platelet Estimate Adequate; Polychromasia Slight
[2024-02-28 16:36] LABS: Giant Platelets Few
[2024-02-28 16:40] LABS: Creatinine, Urine 93.05 mg/dL (30.0-125.0); Urine Protein/Creatinine Ratio 0.24
[2024-02-28 16:41] LABS: Cannabinoid Screen, Urine Neg (NEGATIVE)
[2024-02-28 16:42] LABS: Amphetamine Screen, Urine Neg (NEGATIVE); Barbiturate Scree,Urine Neg (NEGATIVE); Benzodiazephine Screen, Urine Neg (NEGATIVE); Cocaine Screen, Urine Neg (NEGATIVE); Opiate Scree,Urine Neg (NEGATIVE); Phencyclidine Screen, Urine Neg (NEGATIVE)
[2024-02-28] MEDS: ROPIVACAINE HCL 200 ML ONE (17:25)
[2024-02-28] MEDS: ONDANSETRON HCL 4 MG/2 ML VIAL IV PRN (18:22)
--- NOTE | 2024-02-28 19:09 | DVHPN2 ---
Chief Complaints Patient reports: No new complaints Nursing reports: No new complaints Objective Medications Current Medications Medications (Trade) Dose Ordered Sig/Reji Route PRN Reason Start Time Stop Time Status Last Admin Benzocaine (Dermoplast) 1 applic PRN PRN TOP PERINEAL AREA DISCOMFORT 02/28/24 15:00 Butorphanol Tartrate (Stadol Injection) 1 mg Q4HPRN PRN IV MODERATE PAIN (4-6 PAIN SCALE) 02/28/24 15:00 Butorphanol Tartrate (Stadol Injection) 2 mg Q4HPRN PRN IV SEVERE PAIN (7-10 PAIN SCALE) 02/28/24 15:00 Lactated Ringer's 1,000 ml @ 125 mls/hr Q8H IV 02/28/24 15:00 Lidocaine HCl (Xylocaine) 20 ml ONCE PRN IJ PERINEAL AREA DISCOMFORT 02/28/24 15:00 Ondansetron HCl (Zofran) 4 mg Q4HPRN PRN IV NAUSEA / VOMITING 02/28/24 17:45 02/28/24 18:22 Penicillin G Potassium 2014003 units/Dextrose 50 ml @ 100 mls/hr Q4H IV 02/28/24 19:00 Sodium Lauryl Sulfate (Phisoderm) 240 ml PRN PRN TOP PERINEAL AREA DISCOMFORT 02/28/24 15:00 Witch Yi (Pios) 1 pad PRN PRN TOP PERINEAL AREA DISCOMFORT 02/28/24 15:00 Others [id number] Studies Laboratory Tests 02/28/24 15:13 Test 02/28/24 15:13 Range/Units Serum Glucose 83 74-106 mg/dL Ass/Plan Assessment active labor Plan start pitocin arom done clear RICHARD Crawley DO Feb 28, 2024 19:09
[2024-02-28] MEDS: LACT. RINGERS/OXYTOCIN 20UNITS 1,000 ML IV SCH (19:50)
[2024-02-28] MEDS ORDERED: PENICILLIN G POT 5MIL/D5 50ML 50 ML IV ONE (20:19)
[2024-02-28] MEDS: PENICILLIN G POTASSIUM 2,500,000 UNITS in D5W 5% 50 ML IV SCH (20:30)
[2024-02-28] MEDS: LACTATED RINGER'S 1,000 ML IV SCH (20:39)
[2024-02-28] MEDS: PHISODERM TOP SOLN 240ML BTL TOP PRN (23:45)
[2024-02-28] MEDS: DERMOPLAST 60ML BOTTLE TOP PRN (23:45)
[2024-02-28] MEDS: WITCH HAZEL-GLYCERIN PAD TOP PRN (23:45)
--- NOTE | 2024-02-29 01:26 | LDN2 ---
Labor and Delivery Note Date 02/29/24 Age 23 2 Para 1 AB 0 EDC 03/06/24 EGA 39w Diagnosis IUP at 39weeks Anemia Labor Category 1 FHR Tracing Vaginal Delivery: VTX Vacuum Assisted: No Placenta: Spontaneous Sex: Female Weight 3835g Apgars 8 & 9 @ one minute & five minutes of life respectively Nuchal Cord Transected: No Amniotic Fluid: Clear Anesthesia Labor Epidural Episiotomy: No Extension: Yes Repaired with 2-0 Vicryl suture EBL 100mL Labs Laboratory Tests 08/08/23 12:57: Hepatitis B Surface Antigen Negative, HIV (1&2) Antibody Negative, Rubella Antibody Positive Blood Bank 02/28/24 15:13: Blood Type O POSITIVE Complications None Conditions Mother and baby in stable condition 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 ORTEGA position. placed skin to skin on pt's chest. Cord clamped and cut after pulsation ceased. Cord blood sent. Intact 3-vessel cord placenta delivered spontaneously, Manuel. Pitocin IV bolus started. Placenta sent to pathology. Patient had labor epidural anesthesia. Cervix/vagina inspected via SSE. Cervix intact. First degree perineal laceration noted and was repaired with 2-0 Vicryl suture. Fundus at U, firm, midline, and light lochia. QBL 100ml. VSS. Rectal mucosa and sphincter intact. Rectal exam performed, WNL, not involved. Count correct x2. Patient to care and baby to couplet care, both stable. PHANI PIERSON CNM Feb 29, 2024 01:26
[2024-02-29 03:00] VITALS: BP 125/82; PULSE 75; RESP 16; TEMP 97.7; O2SAT 98
[2024-02-29] MEDS ORDERED: ONDANSETRON ODT 4 MG TAB PO PRN (03:15)
[2024-02-29] MEDS: IBUPROFEN 600 MG TAB PO PRN (03:23)
[2024-02-29] MEDS: LACT. RINGERS/OXYTOCIN 20UNITS 500 ML IV ONE ×2 (04:10)
[2024-02-29] MEDS: ACETAMINOPHEN 325 MG TAB PO PRN (04:35)
[2024-02-29 07:00] VITALS: BP 133/83; PULSE 69; RESP 16; TEMP 97.6; O2SAT 97
[2024-02-29] MEDS: DOCUSATE SOD 100 MG CAP PO ONE (07:32)
--- NOTE | 2024-02-29 08:09 | DVHPN2 ---
Progress Note Date Seen: Feb 29, 2024 Subjective S: Lochia minimal. Regular diet well tolerated. Ambulating and voiding well w/o feeling dizzy or lightheaded. Perineal pain relieved with topical analgesics and cramps with oral analgesics. Passing flatus but no BM yet. w/o problem vital signs Vital Sign Date Time Temp Pulse Resp B/P (MAP) Pulse Ox O2 Delivery O2 Flow Rate FiO2 02/29/24 03:00 97.7 75 16 125/82 (96) 98 97.7 02/29/24 02:30 Room Air Total Intake and Output 02/28/24 02/28/24 02/29/24 15:00 23:00 07:00 Output Total 1450 ml Balance -1450 ml medications Current Medications Medications Dose Ordered Sig/Reji Route Start Time Stop Time Status Last Admin Dose Admin Lactated Ringer's 1,000 ml @ 125 mls/hr Q8H IV 02/28/24 15:00 02/28/24 20:39 125 MLS/HR Dillon [place] 1 pad PRN PRN TOP 02/28/24 15:00 02/28/24 23:45 1 PAD Sodium Lauryl Sulfate 240 ml PRN PRN TOP 02/28/24 15:00 02/28/24 23:45 240 ML Benzocaine 1 applic PRN PRN TOP 02/28/24 15:00 02/28/24 23:45 1 APPLIC Butorphanol Tartrate 1 mg Q4HPRN PRN IV 02/28/24 15:00 Butorphanol Tartrate 2 mg Q4HPRN PRN IV 02/28/24 15:00 Lidocaine HCl 20 ml ONCE PRN IJ 02/28/24 15:00 Cancel Ondansetron HCl 4 mg Q4HPRN PRN IV 02/28/24 17:45 02/28/24 18:22 4 MG Ibuprofen 600 mg Q6HP PRN PO 02/29/24 03:15 02/29/24 03:23 600 MG Acetaminophen 650 mg Q4HP PRN PO 02/29/24 03:15 02/29/24 04:35 650 MG Ondansetron HCl 4 mg Q4HPRN PRN PO 02/29/24 03:15 Docusate Sodium 200 mg HS PO 02/29/24 22:00 laboratory and microbiology Laboratory Tests 02/28/24 15:13 Test 02/28/24 15:13 Range/Units Serum Glucose 83 74-106 mg/dL Objective O: A&O x3 NAD. Afebrile, VSS Chest: heart and lung sounds normal. Breasts: Nipples intact w/o cracks or soreness Abdomen: normal BS, soft, non-tender, no rebound or guarding, fundus firm @ U, Perineum:- no edema, or erythema, laceration site with sutures intact, edges in good approximation. Extremities: no edema or tenderness Lochia - minimal Assessment/Plan 23yo now ppd#1_ s/p doing well Anemia Blood Type: O Rh: Positive Breast feeding and Formula feeding Rubella: Immune Pain control with oral medications Bowel regimen: Increase fluid intake and fiber in diet, Laxative PRN Discharge plan: May discharge home tomorrow if condition remains stable Plan discussed with: Patient, Spouse PHANI PIERSON CNM Feb 29, 2024 08:09
[2024-02-29 11:00] VITALS: BP 121/74; PULSE 76; RESP 20; TEMP 97.4; O2SAT 97
[2024-02-29 15:00] VITALS: BP 114/69; PULSE 69; RESP 20; TEMP 97.7; O2SAT 97
[2024-02-29 19:00] VITALS: BP 112/73; PULSE 73; RESP 16; TEMP 97.8; O2SAT 98
[2024-02-29] MEDS: DOCUSATE SOD 100 MG CAP PO SCH (21:52)
[2024-02-29 23:00] VITALS: BP 128/87; PULSE 77; RESP 16; TEMP 97.7; O2SAT 98
[2024-03-01 02:45] VITALS: BP 130/82; PULSE 80; RESP 15; TEMP 98; O2SAT 97
--- NOTE | 2024-03-01 04:30 | DVHPN2 ---
Progress Note Date Seen: Mar 01, 2024 Subjective S: Lochia minimal. Regular diet well tolerated. Ambulating and voiding well w/o feeling dizzy or lightheaded. Perineal pain relieved with topical analgesics and cramps with oral analgesics. Passing flatus but no BM yet. w/o problem. Plans to use Rhythm method for contraception. Desires & Requests to be discharged today vital signs Vital Sign Date Time Temp Pulse Resp B/P (MAP) Pulse Ox O2 Delivery O2 Flow Rate FiO2 02/29/24 23:00 97.7 77 16 128/87 (101) 98 97.7 02/29/24 19:00 Room Air 02/29/24 07:00 0.0 Total Intake and Output 02/29/24 02/29/24 03/01/24 15:00 23:00 07:00 Intake Total 650 ml Balance 650 ml medications Current Medications Medications Dose Ordered Sig/Reji Route Start Time Stop Time Status Last Admin Dose Admin Lactated Ringer's 1,000 ml @ 125 mls/hr Q8H IV 02/28/24 15:00 02/28/24 20:39 125 MLS/HR Witch Yi 1 pad PRN PRN TOP 02/28/24 15:00 02/28/24 23:45 1 PAD Sodium Lauryl Sulfate 240 ml PRN PRN TOP 02/28/24 15:00 02/28/24 23:45 240 ML Benzocaine 1 applic PRN PRN TOP 02/28/24 15:00 02/28/24 23:45 1 APPLIC Butorphanol Tartrate 1 mg Q4HPRN PRN IV 02/28/24 15:00 Butorphanol Tartrate 2 mg Q4HPRN PRN IV 02/28/24 15:00 Lidocaine HCl 20 ml ONCE PRN IJ 02/28/24 15:00 Cancel Ondansetron HCl 4 mg Q4HPRN PRN IV 02/28/24 17:45 02/28/24 18:22 4 MG Ibuprofen 600 mg Q6HP PRN PO 02/29/24 03:15 03/01/24 04:09 600 MG Acetaminophen 650 mg Q4HP PRN PO 02/29/24 03:15 03/01/24 04:08 650 MG Ondansetron HCl 4 mg Q4HPRN PRN PO 02/29/24 03:15 Docusate Sodium 200 mg HS PO 02/29/24 22:00 02/29/24 21:52 200 MG laboratory and microbiology Laboratory Tests 02/28/24 15:13 Test 02/28/24 15:13 Range/Units Serum Glucose 83 74-106 mg/dL Objective A&O x3 NAD. Afebrile, VSS Chest: heart and lung sounds normal. Breasts: Nipples intact w/o cracks or soreness Abdomen: normal BS, soft, non-tender, no rebound or guarding, fundus firm @ U- 1, Perineum:- no edema, or erythema, laceration site with sutures intact, edges in good approximation. Extremities: no edema or tenderness Lochia - minimal Assessment/Plan 23yo now ppd#2_ s/p doing well. Blood Type: O Rh: Positive Breast feeding and Formula feeding Rubella: Immune Pain control with oral medications Bowel regimen: Increase fluid intake and fiber in diet, Laxative PRN Discharge plan: May discharge home later today if condition remains stable Plan discussed with: Patient, Spouse PHANI PIERSON CNM Mar 01, 2024 04:30
--- NOTE | 2024-03-01 04:35 | DVHDS2 ---
Obstetrics Discharge Summary Obstetrics Discharge Summary Date of Admission: Feb 28, 2024 Date of Discharge: Mar 01, 2024 Reason For Admission: Onset of Labor Procedures: None Intrapartum Procedures: Spontaneous vaginal deliv Procedures: None Operative Complicat: None Discharge Diagnosis: Term -Delivered Discharge Information: Activity (Unrestricted. Advance as tolerated. No heavy lifting, pushing or straining. Pelvic rest x 6weeks), Diet (Routine regular diet rich in fiber, protein, iron and vitamin C with adequate fluid intake.), Medications (Ibuprofen 600mg every 6 hours as needed for pain. Continue Vitamin and iron), Instructions ( self care instructions given. emergency signs and symptoms including pre-eclampsia precautions and signs of PPD reviewed with patient. Follow up with OB Provider in 1 week), Discharge to (Home) PHANI PIERSON CNM Mar 01, 2024 04:35
[2024-03-01 07:00] VITALS: BP 125/77; PULSE 75; RESP 20; TEMP 97.8; O2SAT 98
--- NOTE | 2024-03-01 09:34 | DVHINCON2 ---
Date of service: Mar 01, 2024 Reason for Consultation Patient complaints of back pain and headache. Allergies: Coded Allergies: NO KNOWN ALLERGIES (Unverified , 07/27/21) Home Meds Active Scripts Gentamicin Sulfate (Gentamicin Sulfate) 0.3 % Carolynn, 2 DROP EACHEYE QID for 7 Days, #15 ML Prov:EDUARDO MUNIZ Sowmya CAR SUPPLIER 12/15/22 Benzonatate (Benzonatate) 200 Mg Cap, 1 CAP PO TID, #30 CAP as needed for cough Prov:FLAVIOEDUARDO Q CAR SUPPLIER 12/15/22 Albuterol Sulfate (VENTOLIN MDI) 90 Mcg Ih, 1 PUFF IN Q4HR, #1 INH as needed for cough congestion shortness of breath and wheezing Prov:EDUARDO MUNIZ Q CAR SUPPLIER 12/15/22 Prednisone (Prednisone) 20 Mg Tab, 1 TAB PO DAILY for 5 Days, #5 TAB start tomorrow with food Prov:EDUARDO MUNIZ Q CAR SUPPLIER 12/15/22 Amoxicillin & Pot Clavulanate (AUGMENTIN TABLET) 875 Mg Tb, 1 TAB PO BID for 10 Days, #20 TAB Prov:EDUARDO MUNIZ Q CAR SUPPLIER 12/15/22 Doxylamine-Pyridoxine (DICLEGIS) 1 Tab Tab, 1 TAB PO BID PRN for 10 Days, #20 TAB Prov:GRACIE LAY DO 02/11/22 Cephalexin (KEFLEX CAPSULE) 250 Mg Cp, 500 MG PO TID for 7 Days, #21 BOTTLE Prov:VINICIO LEZAMA MD 12/27/21 Reported Medications Nitrofurantoin Monohydrate Mac (Macrobid) 100 Mg Cap, 100 MG PO BID for for uti for 10 Days, CAP 05/20/22 Current Medications Current Medications Medications (Trade) Dose Ordered Sig/Reji Route PRN Reason Start Time Stop Time Status Last Admin Docusate Sodium (Colace Capsule) 200 mg HS PO 02/29/24 22:00 02/29/24 21:52 Vital Signs Vital Signs Date Time Temp Pulse Resp B/P (MAP) Pulse Ox O2 Delivery O2 Flow Rate FiO2 03/01/24 07:00 Room Air 0.0 03/01/24 07:00 97.8 75 20 125/77 (93) 98 97.8 Physical Exam Upon arrival to patient room, patient is sitting on couch. Patient states that she has a headache currently that is not relieved when in the supine position. She further states that she has a history of migraine headaches. She the says that she is having back pain where the epidural was placed and that it is keeping her from ambulating, that she can not fully stand upright due to the pain. Upon examining her back, one spot is noted at the level of described pain where the epidural was presumably placed. The area is non-tender, non-reddened, flat. Only minor tenderness noted when applying vigorous pressure to the site. Patient is able to turn at the waist without pain, but does complain of moderate pain in her back when rising. Patient is instructed to continue taking Acetaminophen and Ibuprofen as needed and to apply head to the site. Patient is reassured that is that there are no clinical signs or symptoms indicative of post-dural puncture headache, epidural hematoma, or other mechanical injury. Questions are sought and answered. RN states that they are preparing patient for discharge later today. Labs/Diagnostic Data Labs Test 02/28/24 15:13 02/28/24 15:00 Range/Units White Blood Count 8.2 4.4-10.8 10^3/uL Red Blood Count 4.86 4.0-5.20 10^6/uL Hemoglobin 10.1 L 12.2-16.2 g/dL Hematocrit 31.8 L 36.0-46.0 % Mean Corpuscular Volume 65.4 L 80.0-100.0 fL Mean Corpuscular Hemoglobin 20.8 L 28.0-32.0 pg Mean Corpuscular Hemoglobin Concent 31.8 L 32.0-36.0 g/dL Red Cell Distribution Width 15.4 H 11.8-14.3 % Platelet Count 314 140-450 10^3/uL Mean Platelet Volume 9.0 6.9-10.8 fL Neutrophils (%) (Auto) 76.2 37.0-80.0 % Lymphocytes (%) (Auto) 16.5 10.0-50.0 % Monocytes (%) (Auto) 6.3 0.0-12.0 % Eosinophils (%) (Auto) 0.5 0.0-7.0 % Basophils (%) (Auto) 0.5 0.0-2.0 % Neutrophils # (Auto) 6.2 1.6-8.6 10 ^3/uL Lymphocytes # (Auto) 1.3 0.4-5.4 10 ^3/uL Monocytes # (Auto) 0.5 0-1.3 10 ^3/uL Eosinophils # (Auto) 0 0-0.8 10 ^3/uL Basophils # (Auto) 0 0-0.2 10 ^3/uL Nucleated Red Blood Cells 0.1 % Platelet Estimate Adequate Giant Platelets Few Polychromasia Slight Hypochromasia (manual) Slight Poikilocytosis (manual) Slight Anisocytosis (manual) Slight Microcytosis Moderate Macrocytosis Slight Ovalocytes Few Prothrombin Time 10.2 9.3-11.8 sec Prothrombin Time INR 0.96 0.9-1.15 Activated Partial Thromboplast Time 23.4 L 24.5-34.5 SEC Sodium Level 138 136-145 mmol/L Potassium Level 3.6 3.5-5.1 mmol/L Chloride Level 107 98-107 mmol/L Carbon Dioxide Level 18 L 20-31 mmol/L Anion Gap 13 5-15 Blood Urea Nitrogen 9 9-23 mg/dL Creatinine 0.63 0.550-1.02 mg/dL Glomerular Filtration Rate Calc 129 >90 mL/min BUN/Creatinine Ratio 14.3 10.0-20.0 Serum Glucose 83 74-106 mg/dL Uric Acid 7.2 3.1-7.8 mg/dL Calcium Level 9.2 8.7-10.4 mg/dL Total Bilirubin 0.5 0.2-1.0 mg/dL Aspartate Amino Transferase (AST) 17 13-40 U/L Alanine Aminotransferase (ALT) 9 7-40 U/L Alkaline Phosphatase 199 H 46-116 U/L Total Protein 6.6 5.7-8.2 g/dL Albumin 4.0 3.2-4.8 g/dL Hepatitis C Antibody Negative Negative Urine Color Light-yellow Yellow Urine Clarity Clear Clear Urine pH 6.5 5.0-9.0 Urine Specific [place] 1.014 1.001-1.035 Urine Protein Negative Negative Urine Ketones Negative Negative Urine Blood Negative Negative /uL Urine Nitrite Negative Negative Urine Bilirubin Negative Negative Urine Urobilinogen Normal Negative mg/dL Urine Leukocyte Esterase Negative Negative /uL Urine RBC <1 0 - 4 /hpf Urine WBC <1 0 - 5 /hpf Urine Squamous Epithelial Cells Few <5 /hpf Urine Bacteria None seen None Seen /hpf Urine Creatinine 93.05 30.0-125.0 mg/dL Urine Protein/Creatinine Ratio 0.24 Urine Glucose Normal Normal mg/dL Urine Total Protein 22.0 H 1-14 mg/dL Urine Opiates Screen Neg NEGATIVE Urine Fentanyl Screen Neg NEGATIVE Urine Barbiturates Screen Neg NEGATIVE Urine Phencyclidine Screen Neg NEGATIVE Urine Amphetamines Screen Neg NEGATIVE Urine Benzodiazepines Screen Neg NEGATIVE Urine Cocaine Screen Neg NEGATIVE Urine Cannabinoids Screen Neg NEGATIVE Plan discussed with: Patient, Spouse LAZ CARBAJAL CRNA Mar 01, 2024 09:34
[2024-03-01 11:00] VITALS: BP 125/67; PULSE 70; RESP 20; TEMP 97.8; O2SAT 97
== END 2024-03-01 14:22 | disposition home or self-care (01) | DRG 560 ==
LOC: LDRP 14:50
PROVIDERS: ADMIT Obstetrics & Gynecology; ATTEND Obstetrics & Gynecology
PROC: 10E0XZZ Delivery of Products of Conception, External Approach (ICD-10-PCS; principal; 2024-02-28)
PROC: 0HQ9XZZ Repair Perineum Skin, External Approach (ICD-10-PCS; 2024-02-28)
PROC: 3E0R3BZ Introduction of Anesthetic Agent into Spinal Canal, Percutaneous Approach (ICD-10-PCS; 2024-02-28)
PROC: 00HU33Z Insertion of Infusion Device into Spinal Canal, Percutaneous Approach (ICD-10-PCS; 2024-02-28)
DX: O99.02 Anemia complicating childbirth (principal); Z37.0 Single live birth; O70.0 First degree perineal laceration during delivery; Z3A.39 39 weeks gestation of pregnancy
CPT/HCPCS: 36415; 59025; 59409; 62282; 80053; 80307; 81001; 81002; 82570; 84156; 84550; 85025; 85610; 85730; 86592; 86803; 86850; 86900; 86901; 94760; 96360; 96361; 96365; 96366; 96374; G0378; J2405; J2540; J2590; J7060

== ENCOUNTER 2024-03-02 02:36 | Emergency (ER) | payer MEDICAID ==
[~2024-03-02] VITALS: Ht 160 cm; Wt 60.9 kg
[2024-03-02 03:00] VITALS: O2SAT 98
[2024-03-02] MEDS: SODIUM CHLORIDE 0.9% 1,000 ML IV ONE (03:30)
[2024-03-02] MEDS: ACETAMINOPHEN 500 MG TAB or CAP PO ONE (03:42)
[2024-03-02 04:06] LABS: Basophils # (auto) 0.1 10 ^3/uL (0-0.2); Basophils % (auto) 0.6 % (0.0-2.0); Eosinophils # (auto) 0.1 10 ^3/uL (0-0.8); Eosinophils % (auto) 1.3 % (0.0-7.0); Hemoglobin 9.5 g/dL (12.2-16.2); Lymphocytes # (auto) 1.9 10 ^3/uL (0.4-5.4); Lymphocytes % (auto) 20.1 % (10.0-50.0); Mean Corpuscular Hemoglobin 20.9 pg (28.0-32.0); Mean Corpuscular Hgb Conc. 31.7 g/dL (32.0-36.0); Monocytes # (auto) 0.5 10 ^3/uL (0-1.3); Monocytes % (auto) 5.2 % (0.0-12.0); Neutrophils # (auto) 6.7 10 ^3/uL (1.6-8.6); Neutrophils % (auto) 72.8 % (37.0-80.0); Nucleated Red Blood Cells % 0.1 %; Platelet Count (auto) 299 10^3/uL (140-450); Red Blood Cells 4.54 10^6/uL (4.0-5.20); Red Cell Distribution Width 15.2 % (11.8-14.3); White Blood Cell 9.2 10^3/uL (4.4-10.8)
[2024-03-02 04:18] LABS: Alanine Aminotransferase 14 U/L (7-40); Albumin 3.9 g/dL (3.2-4.8); Alkaline Phosphatase 154 U/L (46-116); Anion Gap 12 (5-15); Aspartate Aminotransferase 19 U/L (13-40); BUN/Creatinine Ratio 16.2 (10.0-20.0); Blood Urea Nitrogen 11 mg/dL (9-23); Calcium 9.2 mg/dL (8.7-10.4); Carbon Dioxide 23 mmol/L (20-31); Chloride 106 mmol/L (98-107); Glucose 87 mg/dL (74-106); Magnesium 1.8 mg/dL (1.6-2.6); Sodium 141 mmol/L (136-145)
[2024-03-02 04:19] LABS: Bilirubin, Total 0.3 mg/dL (0.2-1.0); Total Protein 6.3 g/dL (5.7-8.2)
--- NOTE | 2024-03-02 04:31 | ED.PDOC ---
History of Present Illness HPI Comments 23-year-old female presents with a chief complaint of headache x 3 days post- s/p epidural. Patient states that her pain is a 10/10 at this time, describes as pulsating pressure. Patient also reports dizziness, nausea, but no vomiting at this time. Patient was advised by labor and delivery yesterday to follow-up with the ER if headache did not resolve. Patient was discharged from labor and delivery at [facility] yesterday. Chief Complaint: Headache Time Seen by MD: 04:23 Primary Care Provider: BALTA Reviewed Notes: Nurses Notes, Medications, Allergies Allergies: Coded Allergies: NO KNOWN ALLERGIES (Unverified , 07/27/21) Home Meds Active Scripts Gentamicin Sulfate (Gentamicin Sulfate) 0.3 % Carolynn, 2 DROP EACHEYE QID for 7 Days, #15 ML Prov:EDUARDO MUNIZ GOLF INSTRUCTOR 12/15/22 Benzonatate (Benzonatate) 200 Mg Cap, 1 CAP PO TID, #30 CAP as needed for cough Prov:EDUARDO MUNIZ GOLF INSTRUCTOR 12/15/22 Albuterol Sulfate (VENTOLIN MDI) 90 Mcg Ih, 1 PUFF IN Q4HR, #1 INH as needed for cough congestion shortness of breath and wheezing Prov:FLAVIOBLOSSOMCLAUDIA Deng GOLF INSTRUCTOR 12/15/22 Prednisone (Prednisone) 20 Mg Tab, 1 TAB PO DAILY for 5 Days, #5 TAB start tomorrow with food Prov:FLAVIOСЕРГЕЙMaria Fernanda Deng GOLF INSTRUCTOR 12/15/22 Amoxicillin & Pot Clavulanate (AUGMENTIN TABLET) 875 Mg Tb, 1 TAB PO BID for 10 Days, #20 TAB Prov:FLAVIOСЕРГЕЙMaria Fernanda Deng GOLF INSTRUCTOR 12/15/22 Doxylamine-Pyridoxine (DICLEGIS) 1 Tab Tab, 1 TAB PO BID PRN for 10 Days, #20 TAB Prov:GRACIE LAY DO 02/11/22 Cephalexin (KEFLEX CAPSULE) 250 Mg Cp, 500 MG PO TID for 7 Days, #21 BOTTLE Prov:VINICIO LEZAMA MD 12/27/21 Reported Medications Nitrofurantoin Monohydrate Mac (Macrobid) 100 Mg Cap, 100 MG PO BID for for uti for 10 Days, CAP 05/20/22 Information Source: Patient Mode of Arrival: Ambulatory Severity: Moderate Timing: Days Duration: Since onset Prehospital treatment: None Vital Signs Vital Signs Date Time Temp Pulse Resp B/P (MAP) Pulse Ox O2 Delivery O2 Flow Rate FiO2 03/02/24 08:15 84 13 Room Air* 0 21 03/02/24 07:30 97.8 113/75 (88) 97.8 03/02/24 03:00 98 Past Medical History PAST MEDICAL HISTORY: Denies Surgical History: Denies all surgeries DIRECTOR OF PHILANTHROPY History: No Pertinent DIRECTOR OF PHILANTHROPY History Family History Family History: Unknown Social History Smoker: Non-Smoker Alcohol: Denies ETOH Use Drugs: Denies Drug Use Lives In: Home Was a procedure done? Was a procedure done?: No Differential Dx Considerations may include: Patient headache, migraine headache, epidural induced headache X-Ray, Labs, Meds, VS Vital Signs Date Time Temp Pulse Resp B/P (MAP) Pulse Ox O2 Delivery O2 Flow Rate FiO2 03/02/24 08:15 84 13 Room Air* 0 21 03/02/24 07:30 97.8 84 13 113/75 (88) 97.8 03/02/24 03:00 98.0 73 16 171/105 (127) 98 Lab Test 03/02/24 03:54 03/02/24 03:28 Range/Units Urine Color Light-yellow Yellow Urine Clarity Clear Clear Urine pH 7.0 5.0-9.0 Urine Specific [place] 1.018 1.001-1.035 Urine Protein Trace H Negative Urine Ketones Negative Negative Urine Blood 2+ H Negative /uL Urine Nitrite Negative Negative Urine Bilirubin Negative Negative Urine Urobilinogen Normal Negative mg/dL Urine Leukocyte Esterase 2+ Negative /uL Urine RBC 73 0 - 4 /hpf Urine WBC 17 0 - 5 /hpf Urine Squamous Epithelial Cells Mod <5 /hpf Urine Bacteria None seen None Seen /hpf Urine Glucose Normal Normal mg/dL White Blood Count 9.2 4.4-10.8 10^3/uL Red Blood Count 4.54 4.0-5.20 10^6/uL Hemoglobin 9.5 L 12.2-16.2 g/dL Hematocrit 30.0 L 36.0-46.0 % Mean Corpuscular Volume 66.0 L 80.0-100.0 fL Mean Corpuscular Hemoglobin 20.9 L 28.0-32.0 pg Mean Corpuscular Hemoglobin Concent 31.7 L 32.0-36.0 g/dL Red Cell Distribution Width 15.2 H 11.8-14.3 % Platelet Count 299 140-450 10^3/uL Mean Platelet Volume 8.3 6.9-10.8 fL Neutrophils (%) (Auto) 72.8 37.0-80.0 % Lymphocytes (%) (Auto) 20.1 10.0-50.0 % Monocytes (%) (Auto) 5.2 0.0-12.0 % Eosinophils (%) (Auto) 1.3 0.0-7.0 % Basophils (%) (Auto) 0.6 0.0-2.0 % Neutrophils # (Auto) 6.7 1.6-8.6 10 ^3/uL Lymphocytes # (Auto) 1.9 0.4-5.4 10 ^3/uL Monocytes # (Auto) 0.5 0-1.3 10 ^3/uL Eosinophils # (Auto) 0.1 0-0.8 10 ^3/uL Basophils # (Auto) 0.1 0-0.2 10 ^3/uL Nucleated Red Blood Cells 0.1 % Prothrombin Time 9.7 9.3-11.8 sec Prothrombin Time INR 0.91 0.9-1.15 Activated Partial Thromboplast Time 23.4 L 24.5-34.5 SEC Sodium Level 141 136-145 mmol/L Potassium Level 4.0 3.5-5.1 mmol/L Chloride Level 106 98-107 mmol/L Carbon Dioxide Level 23 20-31 mmol/L Anion Gap 12 5-15 Blood Urea Nitrogen 11 9-23 mg/dL Creatinine 0.68 0.550-1.02 mg/dL Glomerular Filtration Rate Calc 126 >90 mL/min BUN/Creatinine Ratio 16.2 10.0-20.0 Serum Glucose 87 74-106 mg/dL Calcium Level 9.2 8.7-10.4 mg/dL Magnesium Level 1.8 1.6-2.6 mg/dL Total Bilirubin 0.3 0.2-1.0 mg/dL Aspartate Amino Transferase (AST) 19 13-40 U/L Alanine Aminotransferase (ALT) 14 7-40 U/L Alkaline Phosphatase 154 H 46-116 U/L Total Protein 6.3 5.7-8.2 g/dL Albumin 3.9 3.2-4.8 g/dL Current Medications Medications (Trade) Dose Ordered Sig/Reji Route Start Time Stop Time Status Last Admin Sodium Chloride 1,000 ml @ 1,000 mls/hr Q1H ONCE IV 03/02/24 03:30 03/02/24 04:29 DC 03/02/24 03:30 Acetaminophen (Tylenol Tablet) 1,000 mg ONCE ONCE PO 03/02/24 03:30 03/02/24 03:31 DC 03/02/24 03:42 Magnesium Sulfate/ Dextrose 100 ml @ 100 mls/hr Q1H IV 03/02/24 04:45 03/02/24 06:44 DC 03/02/24 06:30 Ondansetron HCl (Zofran) 4 mg ONCE ONCE IV 03/02/24 05:00 03/02/24 05:01 DC 03/02/24 05:00 0628 we spoke with the anesthesiologist on-call and we did let him know that this patient would need a blood patch. At this time we do have all the preop labs done. The patient received normal saline at 1 L bolus. The patient also received Zofran as well as magnesium and acetaminophen. We have discussed the findings with the patient and at this time, the patient was awaiting the procedure Time of 1ST Reevaluation: 04:53 Reevaluation 1ST: Unchanged Patient Education/Counseling: Diagnosis, Treatment, Prognosis Family Education/Counseling: No Family Present Departure 1 Departure Time of Disposition: 06:28 Impression: Primary Impression: Spinal headache Disposition: 30 STILL A PATIENT Condition: Fair Comments I reviewed the following notes from the pt's past medical encounters: The following tests were ordered, and results were reviewed by me: (labs, EKGS, xrays, etc) Additional information was gathered from interviewing the following independent historians: (fam, other providers, EMT) I reviewed and agreed with the following test results read by other providers: (xray, CT, US) I discussed treatments and results with medical personnel and: (consultants, fam, etc) The patient is being discharged to the operating room for the procedure The anesthesiologist came down and has accepted the patient to be transferred Critical Care Note Critical Care Time?: No Stability Stability form required: No I personally scribed for LOI CARL MD ([email or web address]) on 03/02/24 at 04:31. Electronically submitted by Guille Manley ([email or web address]). LOI CARL MD Mar 02, 2024 04:31 JUSTINE HAYES MD Mar 02, 2024 06:30
[2024-03-02 04:49] LABS: Urine Bacteria None Seen /hpf (None Seen)
[2024-03-02] MEDS: ONDANSETRON HCL 4 MG/2 ML VIAL IV ONE (05:00)
[2024-03-02 05:10] LABS: Urine Blood 2+ /uL (Negative); Urine Clarity Clear (Clear); Urine Color Light-Yellow (Yellow); Urine Protein, UAD TRACE (Negative); Urine Specific Gravity 1.018 (1.001-1.035); Urine Urobilinogen Normal (Negative); Urine WBC 17 /hpf (0 - 5)
[2024-03-02] MEDS: MAGNESIUM SULFATE 1GM/100ML 100 ML IV SCH (05:30)
[2024-03-02 07:20] LABS: INR 0.91 (0.9-1.15); Partial Thromboplastin Time 23.4 SEC (24.5-34.5); Prothrombin Time 9.7 sec (9.3-11.8)
[2024-03-02 07:30] VITALS: BP 113/75; TEMP 97.8
[2024-03-02 08:15] VITALS: PULSE 84; RESP 13
[2024-03-02] MEDS ORDERED: fentaNYL CITRATE 100 MCG/2 ML VL ONE (08:23)
[2024-03-02] MEDS ORDERED: MIDAZOLAM HCL 2MG/2ML 2ml VIAL (1mg/ml) ONE (08:23)
[2024-03-02] MEDS ORDERED: KETOROLAC TROMETH 30 MG/ML 1ML VIAL ONE (08:23)
[2024-03-02] MEDS ORDERED: ONDANSETRON HCL 4 MG/2 ML VIAL ONE (08:23)
--- NOTE | 2024-03-02 09:12 | DVHNC2 ---
Procedure - Called to ER for evaluation of headache. Patient delivered a baby this weekend with epidural analgesia. She was evaluated for PDPH yesterday in L&D prior to discharge home. Her headache at that time did not have a postural component and was thought to be migraine-related. It worsened yesterday after discharge, becoming significantly worse when the patient attempted to sit or stand and improving when laying flat. She is also having back pain after delivery. No fev er or elevated white blood cell count. Patient was counseled about conservative measures vs epidural blood patch with risks and benefits explained. All questions answered. She decided to try epidural blood patch. Patient was brought to PACU for he procedure as the ER was congested. Informed consent for epidural blood patch with moderate sedation obtained. 30mg IV toradol and 50mcg IV fentanyl given to allow the patient to sit up for the procedure. Sterile prep and drape. Time out done. 20 cc autologous obtained with sterile technique by nursing staff. L4-5 space infiltrated with 1% lido. Epidural needle placed with FIDELIA at 4cm. 18cc blood slowly injected until patient reported stiff ness between her shoulder blades. Band-aid applied. Patient positioned supine to rest for 30 minutes. Patient able to raise head without headache. Will discharge home under care of her . NAKUL VICTRO MD Mar 02, 2024 09:12
== END 2024-03-02 10:24 | disposition home or self-care (01) ==
LOC: ER 02:36
DX: R51.9 Headache, unspecified (principal); R42 Dizziness and giddiness; Z79.52 Long term (current) use of systemic steroids; Z79.01 Long term (current) use of anticoagulants
CPT/HCPCS: 36415; 80053; 81001; 83735; 85025; 85610; 85730; 96361; 96365; 96366; 96375; 99284; J1885; J2250; J2405; J3010; J3475; J7030

== ENCOUNTER 2024-08-25 12:01 | Emergency (ER) | payer MEDICAID ==
[~2024-08-25] VITALS: Ht 160 cm; Wt 56.9 kg
[2024-08-25 12:20] VITALS: PULSE 119; RESP 28; TEMP 98.4; O2SAT 100
--- NOTE | 2024-08-25 12:32 | ED.PDOC ---
History of Present Illness HPI Comments 23-year-old female presents with a chief complaint of breast pain x 0900 onset. Patient states that her pain is localized to her right breast, nonradiating, describes as aching. Patient mentions that she is pumping due to having a 6 month old, and pumped prior to arrival to ER, but denies any relief of pain. Patient is nauseous, but denies any active vomiting. Patient is also have body tremors that started x 1 hour ago. Patient denies any other symptoms at this time. Chief Complaint: Breast pain Time Seen by MD: 12:26 Primary Care Provider: BALTA Reviewed Notes: Nurses Notes, Medications, Allergies Allergies: Coded Allergies: NO KNOWN ALLERGIES (Unverified , 07/27/21) Home Meds Active Scripts Dicloxacillin Sodium (Dicloxacillin Sodium) 500 Mg Cap, 1 CAP PO QID, #28 CAP Prov:JUSTINE HAYES MD 08/25/24 Gentamicin Sulfate (Gentamicin Sulfate) 0.3 % Carolynn, 2 DROP EACHEYE QID for 7 Days, #15 ML Prov:EDUARDO MUNIZ GOVERNMENT GAUGER 12/15/22 Benzonatate (Benzonatate) 200 Mg Cap, 1 CAP PO TID, #30 CAP as needed for cough Prov:EDUARDO MUNIZ GOVERNMENT GAUGER 12/15/22 Albuterol Sulfate (VENTOLIN MDI) 90 Mcg Ih, 1 PUFF IN Q4HR, #1 INH as needed for cough congestion shortness of breath and wheezing Prov:EDUARDO MUNIZ GOVERNMENT GAUGER 12/15/22 Prednisone (Prednisone) 20 Mg Tab, 1 TAB PO DAILY for 5 Days, #5 TAB start tomorrow with food Prov:EDUARDO MUNIZ GOVERNMENT GAUGER 12/15/22 Amoxicillin & Pot Clavulanate (AUGMENTIN TABLET) 875 Mg Tb, 1 TAB PO BID for 10 Days, #20 TAB Prov:EDUARDO MUNIZ GOVERNMENT GAUGER 12/15/22 Doxylamine-Pyridoxine (DICLEGIS) 1 Tab Tab, 1 TAB PO BID PRN for 10 Days, #20 TAB Prov:GRACIE LAY DO 02/11/22 Cephalexin (KEFLEX CAPSULE) 250 Mg Cp, 500 MG PO TID for 7 Days, #21 BOTTLE Prov:VINICIO LEZAMA MD 12/27/21 Reported Medications Nitrofurantoin Monohydrate Mac (Macrobid) 100 Mg Cap, 100 MG PO BID for for uti for 10 Days, CAP 05/20/22 Information Source: Patient Mode of Arrival: Ambulatory Severity: Moderate Timing: Hours Duration: Since onset Prehospital treatment: None Past Medical History PAST MEDICAL HISTORY: Anemia Surgical History: Denies all surgeries TIER OVER History: No Pertinent TIER OVER History Family History Family History: Unknown Social History Smoker: Non-Smoker Alcohol: Denies ETOH Use Drugs: Denies Drug Use Lives In: Home Constitutional: denies: chills, diaphoresis, fatigue, fever, malaise, sweats, weakness, others EENTM: denies: blurred vision, double vision, ear bleeding, ear discharge, ear drainage, ear pain, ear ringing, eye pain, eye redness, hearing loss, mouth pain, mouth swelling, nasal discharge, nose bleeding, nose congestion, nose pain, photophobia, tearing, throat pain, throat swelling, voice changes, others Respiratory: denies: cough, hemoptysis, orthopnea, SOB at rest, shortness of breath, SOB with excertion, stridor, wheezing, others Cardiovascular: denies: chest pain, dizzy spells, diaphoresis, Dyspnea on exertion, edema, irregular heart beat, left arm pain, lightheadedness, palpitations, PND, syncope, others Gastrointestinal: reports: nausea; denies: abdomen distended, abdominal pain, blood streaked bowels, constipated, diarrhea, dysphagia, difficulty swallowing, hematemesis, melena, poor appetite, poor fluid intake, rectal bleeding, rectal pain, vomiting, others Genitourinary: denies: abnormal vagina bleeding, burning, dyspareunia, dysuria, flank pain, frequency, hematuria, incontinence, pain, , vagina discharge, urgency, others Neurological: reports: tremors; denies: dizziness, fainting, headache, left sided numbness, left sided weakness, numbness, paresthesia, pre-existing deficit, right sided numbness, right sided weakness, seizure, speech problems, tingling, weakness, others Musculoskeletal: reports: muscle pain; denies: back pain, gout, joint pain, joint swelling, muscle stiffness, neck pain, others Integumetry: denies: bruises, change in color, change in hair/nails, dryness, laceration, lesions, lumps, rash, wounds, others Allergic/Immunocompromised: denies: Difficulty Healing, Frequent Infections, Hives, Itching, others Hematologic/Lymphatic: denies: anemia, blood clots, easy bleeding, easy bruising, swollen glands, others Endocrine: denies: excessive hunger, excessive sweating, excessive thirst, excessive urination, flushing, intolerance to cold, intolerance to heat, unexplained weight gain, unexplained weight loss, others Psychiatric: denies: anxiety, bipolar disorder, depression, hopeless, panic disorder, schizophrenia, sleepless, suicidal, others All Other Systems: Reviewed and Negative Physical Exam General Appearance: Mild Distress HEENT: Normal ENT Inspection, Pharynx Normal, TMs Normal Neck: Full Range of Motion, Non-Tender, Normal, Normal Inspection Respiratory: Chest Non-Tender, Lungs Clear, No Accessory Muscle Use, No Respiratory Distress, Normal Breath Sounds Cardiovascular: No Edema, No JVD, No Murmur, No Gallop, Normal Peripheral Pulses, Regular Rate/Rhythm Breast Exam: (R) Tenderness ( tenderness to the right breast in the inferior aspect) Gastrointestinal: No Organomegaly, Non Tender, No Pulsatile Mass, Normal Bowel Sounds, Soft Genitalia: Deferred Pelvic: Deferred Rectal: Deferred Extremities: No calf tenderness, Normal capillary refill, Normal inspection, Normal range of motion, Non-tender, No pedal edema Musculoskeletal : Apperance: Normal Neurologic: Alert, host/hostess restaurant II-XII nml as Tested, No Motor Deficits, Normal Affect, Normal Mood, No Sensory Deficits Cerebellar Function: Normal Reflexes: Normal Skin: Dry, Normal Color, Warm Lymphatic: No Adenopathy Was a procedure done? Was a procedure done?: No Differential Dx Considerations may include: Abscess, mastitis X-Ray, Labs, Meds, VS Vital Signs Date Time Temp Pulse Resp B/P (MAP) Pulse Ox O2 Delivery O2 Flow Rate FiO2 08/25/24 12:20 119 28 100 Room Air* 0 21 08/25/24 12:20 98.4 119 28 106/79 (88) 100 98.4 08/25/24 12:12 99.8 129 24 99 99.8 Lab Test 08/25/24 12:51 Range/Units White Blood Count 5.2 4.4-10.8 10^3/uL Red Blood Count 5.87 H 4.0-5.20 10^6/uL Hemoglobin 12.0 L 12.2-16.2 g/dL Hematocrit 37.6 36.0-46.0 % Mean Corpuscular Volume 64.1 L 80.0-100.0 fL Mean Corpuscular Hemoglobin 20.4 L 28.0-32.0 pg Mean Corpuscular Hemoglobin Concent 31.8 L 32.0-36.0 g/dL Red Cell Distribution Width 16.4 H 11.8-14.3 % Platelet Count 315 140-450 10^3/uL Mean Platelet Volume 7.4 6.9-10.8 fL Neutrophils (%) (Auto) 83.8 H 37.0-80.0 % Lymphocytes (%) (Auto) 13.2 10.0-50.0 % Monocytes (%) (Auto) 2.2 0.0-12.0 % Eosinophils (%) (Auto) 0.3 0.0-7.0 % Basophils (%) (Auto) 0.5 0.0-2.0 % Neutrophils # (Auto) 4.3 1.6-8.6 10 ^3/uL Lymphocytes # (Auto) 0.7 0.4-5.4 10 ^3/uL Monocytes # (Auto) 0.1 0-1.3 10 ^3/uL Eosinophils # (Auto) 0 0-0.8 10 ^3/uL Basophils # (Auto) 0 0-0.2 10 ^3/uL Nucleated Red Blood Cells 0.1 % Platelet Estimate Adequate Hypochromasia (manual) Marked Microcytosis Marked Sodium Level 142 136-145 mmol/L Potassium Level 3.9 3.5-5.1 mmol/L Chloride Level 107 98-107 mmol/L Carbon Dioxide Level 25 20-31 mmol/L Anion Gap 10 5-15 Blood Urea Nitrogen 17 9-23 mg/dL Creatinine 0.80 0.550-1.02 mg/dL Glomerular Filtration Rate Calc 107 >90 mL/min BUN/Creatinine Ratio 21.3 H 10.0-20.0 Serum Glucose 116 H 74-106 mg/dL Calcium Level 10.2 8.7-10.4 mg/dL Current Medications Medications (Trade) Dose Ordered Sig/Reji Route Start Time Stop Time Status Last Admin Sodium Chloride 500 ml @ 500 mls/hr Q1H ONCE IV 08/25/24 12:30 08/25/24 13:29 DC 08/25/24 13:01 Ondansetron HCl (Zofran) 4 mg ONCE ONCE IV 08/25/24 12:30 08/25/24 12:32 DC 08/25/24 13:02 Ultrasound of the right breast shows:IMPRESSION: Findings suggestive of mastitis. No organized abscess. No solid mass. Lymph nodes in the right axilla are favored to be reactive and are probably benign. Recommend clinical management and repeat right breast ultrasound in 1 month. The Zofran was given 4 mg IV push for the nausea and vomiting The patient was given normal saline at 500 cc bolus The CBC and chemistry panel are within normal limits The patient is being discharged The patient will follow up with the primary care doctor Images Reviewed?: Images reviewed and evaluated by me Time of 1ST Reevaluation: 09:30 Reevaluation 1ST: Unchanged Patient Education/Counseling: Diagnosis, Treatment, Prognosis, Need For Follow Up Family Education/Counseling: No Family Present Departure 1 Departure Time of Disposition: 15:09 Impression: Primary Impression: Mastitis Disposition: 01 HOME / SELF CARE / HOMELESS Condition: Fair e-Prescriptions Dicloxacillin Sodium (Dicloxacillin Sodium) 500 Mg Cap 1 CAP PO QID, #28 CAP Prov: JUSTINE HAYES MD 08/25/24 Discharged With: Self Critical Care Note Critical Care Time?: No Stability Stability form required: No Heart Score Heart Score: Heart Score Response (Comments) Value History N/A 0 EKG N/A 0 Age N/A 0 Risk Factors N/A 0 Troponin N/A 0 Total 0 I personally scribed for JUSTINE HAYES MD ([email or web address]) on 08/25/24 at 12:32. Electronically submitted by Guille Manley ([email or web address]). JUSTINE HAYES MD August 25, 2024 12:32
[2024-08-25] MEDS: SODIUM CHLORIDE 0.9% 500 ML IV ONE (13:01)
[2024-08-25] MEDS: ONDANSETRON HCL 4 MG/2 ML VIAL IV ONE (13:02)
[2024-08-25 13:11] LABS: Basophils # (auto) 0 10 ^3/uL (0-0.2); Eosinophils # (auto) 0 10 ^3/uL (0-0.8); Eosinophils % (auto) 0.3 % (0.0-7.0); Lymphocytes # (auto) 0.7 10 ^3/uL (0.4-5.4); Monocytes # (auto) 0.1 10 ^3/uL (0-1.3); Neutrophils # (auto) 4.3 10 ^3/uL (1.6-8.6); Neutrophils % (auto) 83.8 % (37.0-80.0); Nucleated Red Blood Cells % 0.1 %; Platelet Count (auto) 315 10^3/uL (140-450)
[2024-08-25 13:13] LABS: Basophils % (auto) 0.5 % (0.0-2.0); Hematocrit 37.6 % (36.0-46.0); Lymphocytes % (auto) 13.2 % (10.0-50.0); Mean Corpuscular Hemoglobin 20.4 pg (28.0-32.0); Mean Corpuscular Hgb Conc. 31.8 g/dL (32.0-36.0); Mean Corpuscular Volume 64.1 fL (80.0-100.0); Monocytes % (auto) 2.2 % (0.0-12.0); Red Blood Cells 5.87 10^6/uL (4.0-5.20); Red Cell Distribution Width 16.4 % (11.8-14.3); White Blood Cell 5.2 10^3/uL (4.4-10.8)
[2024-08-25 13:16] LABS: Anion Gap 10 (5-15); Carbon Dioxide 25 mmol/L (20-31); Chloride 107 mmol/L (98-107); Potassium 3.9 mmol/L (3.5-5.1); Sodium 142 mmol/L (136-145)
[2024-08-25 13:17] LABS: Calcium 10.2 mg/dL (8.7-10.4)
[2024-08-25 13:18] LABS: Hypochromia Marked; Platelet Estimate Adequate
[2024-08-25 13:22] LABS: BUN/Creatinine Ratio 21.3 (10.0-20.0); Blood Urea Nitrogen 17 mg/dL (9-23); Glucose 116 mg/dL (74-106)
--- NOTE | 2024-08-25 14:24 | DVH ---
US OF THE RIGHT BREAST INDICATION: pain and swelling TECHNIQUE: All 4 quadrants, subareolar region and axillary region of the RIGHT breast were evaluated with ultrasound COMPARISON: Prior exam dated: None FINDINGS: There is diffuse soft tissue edema and hyperemia in the right breast in region of palpable abnormalit y. Duct ectasia is visualized in the right retroareolar breast. No organized fluid collection. No so lid masses visualized. There are lymph nodes in the right axilla with thickened cortex measuring up t o 10 mm. IMPRESSION: Findings suggestive of mastitis. No organized abscess. No solid mass. Lymph nodes in the right axill a are favored to be reactive and are probably benign. Recommend clinical management and repeat right breast ultrasound in 1 month. ACR Bi Rads Category:Category 3
[2024-08-25] MEDS ORDERED: DICL500C76 PO (14:29)
[2024-08-25] MEDS ORDERED: ZOFR4T PO (15:10)
[2024-08-25 15:20] VITALS: BP 114/66; PULSE 120; RESP 16; O2SAT 97
== END 2024-08-25 15:32 | disposition home or self-care (01) ==
LOC: ER 12:04
DX: N61.0 Mastitis without abscess (principal)
CPT/HCPCS: 36415; 76642; 80048; 85025; 96361; 96374; 99285; J2405; J7040